=== PATIENT | male | born 1960 | race Caucasian/White ===

== ENCOUNTER 2021-10-11 20:06 | Inpatient (IN) ==
[2021-10-11] MEDS ORDERED: Ipratropium/Albuterol Neb 3 ML IH ONE (20:38)
[2021-10-11] MEDS ORDERED: methylPREDNISolone 125 MG/2 ML VIAL IVP ONE (20:38)
[2021-10-11] MEDS ORDERED: Isovue-370 500 ML BOTTLE IVP ONE (20:38)
[2021-10-11 21:02] LABS: Basophils # 0.1 K/mcL (0.0-0.2); Basophils % 0.4 %; Eosinophils # 0.4 K/mcL (0.0-0.6); Eosinophils % 2.4 %; Hemoglobin 15.8 g/dL (12.9-16.9); Immature Granulocytes % 0.4 % (0-4); Lymphocytes # 1.5 K/mcL (0.6-4.6); Lymphocytes % 9.6 %; Mean Corpuscular HGB Conc 32.2 g/dL (31.6-35.5); Mean Corpuscular Hemoglobin 29.8 pg (28.0-33.3); Mean Corpuscular Volume 92.3 fL (83.0-100.0); Mean Platelet Volume 10.6 fL (9.4-12.4); Monocytes # 1.2 K/mcL (0.0-1.3); Monocytes % 7.8 %; Neutrophils # 12.5 K/mcL (1.6-8.9); Platelet Count 176 K/mcL (140-400); Red Blood Count 5.31 M/mcL (4.19-5.50); Red Cell Distribution Width 13.1 % (11.5-14.5); Segmented Neutrophils % 79.4 %; White Blood Count 15.7 K/mcL (4.3-11.1)
[2021-10-11 21:09] LABS: INR 1.1; Prothrombin Time 11.8 Seconds (9.4-12.1)
[2021-10-11 21:12] LABS: Activated Partial Thrombo Time 27.5 Seconds (26.0-36.0)
[2021-10-11 21:24] LABS: Alanine Aminotransferase 6 Units/L (7-52); Albumin 4.4 g/dL (3.5-5.7); Albumin/Globulin Ratio 1.6 (1.1-2.2); Alkaline Phosphatase 80 Units/L (34-104); Aspartate Amino Transferase 13 Units/L (13-39); BUN/Creatinine Ratio 14 (6-26); Bilirubin,Direct 0.1 mg/dL (0.0-0.2); Bilirubin,Indirect 0.4 mg/dL (0.0-1.0); Bilirubin,Total 0.5 mg/dL (0.3-1.0); Blood Urea Nitrogen 18 mg/dL (8-23); Calcium 8.7 mg/dL (8.6-10.3); Carbon Dioxide 25 mEq/L (23-29); Chloride 100 mEq/L (98-107); Globulin 2.7 g/dL (2.4-3.5); Glucose 135 mg/dL (70-105); Osmolality,Calculated 288 (280-300); Sodium 137 mEq/L (136-145); Total Protein 7.1 g/dL (6.4-8.9); Troponin I 0.03 ng/mL (< 0.04); eGFR For African Americans > 60 (> 60); eGFR For Non-African Americans 55 (> 60)
[2021-10-11 21:27] LABS: ABG Base Excess 0 mEq/L (-2 to 3); ABG HCO3 26 mEq/L (21-27); ABG Oxygen Saturation 97 % (95-98); ABG PCO2 46 mmHg (35-45); ABG PH 7.36 pH Units (7.32-7.45); ABG PO2 94 mmHg (85-104); ABG TCO2 28 mEq/L (20-26)
[2021-10-11 21:38] LABS: Thyroid Stimulating Hormone 2.056 mcIU/mL (0.340-5.600)
[2021-10-11] MEDS ORDERED: cefTRIAXone 1,000 MG in 0.9 % Sodium Chloride 10 ML IVP ONE (21:48)
[2021-10-11] MEDS ORDERED: Azithromycin 500 MG in 0.9 % Sodium Chloride 250 ML IVPB ONE (21:48)
[2021-10-11] MEDS ORDERED: Lidocaine/EPI 1:100k 1% 20 ML VIAL INFILT ONE (21:48)
[2021-10-11] MEDS ORDERED: *HR* HYDROmorphone (PF) 1 MG/ML SYRINGE IVP ONE (21:48)
[2021-10-12 00:57] LABS: Influenza A PCR Negative (Negative); Influenza B PCR Negative (Negative); Resp. Syncytial Virus PCR Negative (Negative)
[2021-10-12 00:58] LABS: SARS-CoV-2 by PCR (In House) Negative (Negative)
[2021-10-12] MEDS ORDERED: Naloxone 0.4 MG/ML INJ IVP PRN (01:00)
[2021-10-12] MEDS ORDERED: Melatonin 3 MG TABLET PO PRN (01:00)
[2021-10-12] MEDS ORDERED: Ringers Solution, Lactated 1,000 ML IVC SCH (02:15)
[2021-10-12] MEDS: Ipratropium/Albuterol Neb 3 ML IH SCH ×4 (04:12→20:30)
[2021-10-12 08:04] LABS: Basophils % 0.1 %; Eosinophils % 0.1 %; Hemoglobin 14.4 g/dL (12.9-16.9); Immature Granulocytes % 0.5 % (0-4); Lymphocytes # 0.9 K/mcL (0.6-4.6); Lymphocytes % 8.5 %; Mean Corpuscular Hemoglobin 29.7 pg (28.0-33.3); Mean Corpuscular Volume 92.8 fL (83.0-100.0); Mean Platelet Volume 11.1 fL (9.4-12.4); Monocytes # 0.2 K/mcL (0.0-1.3); Neutrophils # 9.3 K/mcL (1.6-8.9); Platelet Count 157 K/mcL (140-400); Red Blood Count 4.85 M/mcL (4.19-5.50); Segmented Neutrophils % 88.8 %; White Blood Count 10.4 K/mcL (4.3-11.1)
[2021-10-12] MEDS ORDERED: cefTRIAXone 1,000 MG in 0.9 % Sodium Chloride Mini Bag 100 ML IVPB SCH (09:00)
[2021-10-12] MEDS: MethylPREDNISolone 40 MG/ML VIAL IVP SCH ×3 (09:04→23:18)
[2021-10-12] MEDS: Acetaminophen 325 MG TABLET PO PRN ×2 (09:45→17:10)
[2021-10-12 10:40] LABS: BUN/Creatinine Ratio 17 (6-26); Blood Urea Nitrogen 24 mg/dL (8-23); Calcium 8.8 mg/dL (8.6-10.3); Carbon Dioxide 29 mEq/L (23-29); Chloride 100 mEq/L (98-107); Glucose 143 mg/dL (70-105); Magnesium 1.9 mg/dL (1.6-2.6); Osmolality,Calculated 293 (280-300); Phosphorous 2.9 mg/dL (2.7-4.5); Potassium 4.4 mEq/L (3.5-5.1); Sodium 138 mEq/L (136-145); Troponin I < 0.03 ng/mL (< 0.04); eGFR For African Americans > 60 (> 60); eGFR For Non-African Americans 52 (> 60)
[2021-10-12] MEDS ORDERED: Azithromycin 500 MG in 0.9 % Sodium Chloride 250 ML IVPB SCH (21:00)
[2021-10-13] MEDS: Ipratropium/Albuterol Neb 3 ML IH SCH ×4 (03:46→20:52)
[2021-10-13 06:08] LABS: Basophils % 0.1 %; Hematocrit 41.2 % (37.5-50.1); Hemoglobin 13.5 g/dL (12.9-16.9); Immature Granulocytes % 0.6 % (0-4); Lymphocytes # 0.9 K/mcL (0.6-4.6); Lymphocytes % 5.9 %; Mean Corpuscular HGB Conc 32.8 g/dL (31.6-35.5); Mean Corpuscular Hemoglobin 30.3 pg (28.0-33.3); Mean Corpuscular Volume 92.4 fL (83.0-100.0); Mean Platelet Volume 11.3 fL (9.4-12.4); Monocytes # 0.6 K/mcL (0.0-1.3); Monocytes % 4.1 %; Neutrophils # 12.9 K/mcL (1.6-8.9); Platelet Count 161 K/mcL (140-400); Red Blood Count 4.46 M/mcL (4.19-5.50); Red Cell Distribution Width 13.2 % (11.5-14.5); Segmented Neutrophils % 89.3 %; White Blood Count 14.4 K/mcL (4.3-11.1)
[2021-10-13 06:27] LABS: BUN/Creatinine Ratio 22 (6-26); Blood Urea Nitrogen 30 mg/dL (8-23); Calcium 8.4 mg/dL (8.6-10.3); Carbon Dioxide 26 mEq/L (23-29); Chloride 103 mEq/L (98-107); Glucose 158 mg/dL (70-105); Magnesium 2.1 mg/dL (1.6-2.6); Osmolality,Calculated 295 (280-300); Potassium 4.4 mEq/L (3.5-5.1); Sodium 138 mEq/L (136-145); eGFR For African Americans > 60 (> 60); eGFR For Non-African Americans 53 (> 60)
[2021-10-13] MEDS: Piperacillin/Tazobactam 3.375 GM in 0.9 % Sodium Chloride Mini Bag 100 ML IVPB SCH ×2 (09:20→16:02)
[2021-10-13] MEDS: MethylPREDNISolone 40 MG/ML VIAL IVP SCH ×2 (09:20→16:01)
[2021-10-14] MEDS: MethylPREDNISolone 40 MG/ML VIAL IVP SCH ×4 (00:16→23:59)
[2021-10-14] MEDS: Piperacillin/Tazobactam 3.375 GM in 0.9 % Sodium Chloride Mini Bag 100 ML IVPB SCH ×4 (00:17→23:59)
[2021-10-14] MEDS: Ipratropium/Albuterol Neb 3 ML IH SCH ×4 (03:29→20:27)
[2021-10-14 09:19] LABS: Basophils % 0.1 %; Hematocrit 44.3 % (37.5-50.1); Hemoglobin 14.1 g/dL (12.9-16.9); Immature Granulocytes % 1.3 % (0-4); Lymphocytes # 0.9 K/mcL (0.6-4.6); Lymphocytes % 5.5 %; Mean Corpuscular HGB Conc 31.8 g/dL (31.6-35.5); Mean Corpuscular Hemoglobin 29.5 pg (28.0-33.3); Mean Corpuscular Volume 92.7 fL (83.0-100.0); Mean Platelet Volume 10.5 fL (9.4-12.4); Monocytes # 0.9 K/mcL (0.0-1.3); Monocytes % 5.3 %; Neutrophils # 14.6 K/mcL (1.6-8.9); Platelet Count 180 K/mcL (140-400); Red Blood Count 4.78 M/mcL (4.19-5.50); Red Cell Distribution Width 13.4 % (11.5-14.5); Segmented Neutrophils % 87.8 %; White Blood Count 16.6 K/mcL (4.3-11.1)
[2021-10-14 09:40] LABS: Calcium 8.7 mg/dL (8.6-10.3); Potassium 4.3 mEq/L (3.5-5.1)
[2021-10-14] MEDS ORDERED: *HR* Heparin 5,000 UNIT/ML VIAL IVP ONE (10:40)
[2021-10-14] MEDS ORDERED: *HR* Heparin 5,000 UNIT/ML VIAL IVP PRN ×2 (10:40)
[2021-10-14] MEDS: Heparin 25,000UNIT/250ML 1/2NS 25,000 UNIT/250 ML IV.SOLN IVC SCH (12:03)
[2021-10-14 12:59] LABS: Heparin anti-factor XA UFH < 0.04 IU/mL (0.30-0.70)
[2021-10-14 13:00] LABS: Prothrombin Time 11.5 Seconds (9.4-12.1)
[2021-10-14] MEDS: Acetaminophen 325 MG TABLET PO PRN (16:10)
[2021-10-15 02:58] LABS: Basophils % 0.1 %; Hematocrit 42.3 % (37.5-50.1); Immature Granulocytes % 1.3 % (0-4); Lymphocytes % 6.8 %; Mean Corpuscular HGB Conc 33.1 g/dL (31.6-35.5); Mean Corpuscular Hemoglobin 30.5 pg (28.0-33.3); Mean Corpuscular Volume 92.2 fL (83.0-100.0); Mean Platelet Volume 10.7 fL (9.4-12.4); Monocytes # 0.7 K/mcL (0.0-1.3); Monocytes % 4.8 %; Platelet Count 189 K/mcL (140-400); Red Blood Count 4.59 M/mcL (4.19-5.50); Red Cell Distribution Width 13.4 % (11.5-14.5)
[2021-10-15 03:16] LABS: BUN/Creatinine Ratio 26 (6-26); Blood Urea Nitrogen 35 mg/dL (8-23); Calcium 8.8 mg/dL (8.6-10.3); Carbon Dioxide 28 mEq/L (23-29); Chloride 103 mEq/L (98-107); Glucose 145 mg/dL (70-105); Magnesium 2.1 mg/dL (1.6-2.6); Osmolality,Calculated 299 (280-300); Phosphorous 3.6 mg/dL (2.7-4.5); Potassium 4.6 mEq/L (3.5-5.1); Sodium 139 mEq/L (136-145); eGFR For African Americans > 60 (> 60); eGFR For Non-African Americans 53 (> 60)
[2021-10-15] MEDS: Ipratropium/Albuterol Neb 3 ML IH SCH ×4 (03:52→19:51)
[2021-10-15] MEDS: Heparin 25,000UNIT/250ML 1/2NS 25,000 UNIT/250 ML IV.SOLN IVC SCH ×2 (10:06→15:10)
[2021-10-15] MEDS: MethylPREDNISolone 40 MG/ML VIAL IVP SCH ×2 (10:07→18:05)
[2021-10-15] MEDS: Piperacillin/Tazobactam 3.375 GM in 0.9 % Sodium Chloride Mini Bag 100 ML IVPB SCH ×2 (10:07→18:06)
[2021-10-15] MEDS: Azithromycin 500 MG in 0.9 % Sodium Chloride 250 ML IVPB SCH (14:16)
[2021-10-15] MEDS ORDERED: *HR* Heparin 5,000 UNIT/ML VIAL IVP PRN ×2 (14:32)
[2021-10-15] MEDS: Acetaminophen 325 MG TABLET PO PRN (18:11)
[2021-10-16] MEDS: Piperacillin/Tazobactam 3.375 GM in 0.9 % Sodium Chloride Mini Bag 100 ML IVPB SCH ×3 (00:30→23:51)
[2021-10-16] MEDS: MethylPREDNISolone 40 MG/ML VIAL IVP SCH ×3 (00:31→23:52)
[2021-10-16] MEDS: Ipratropium/Albuterol Neb 3 ML IH SCH ×4 (04:26→20:38)
[2021-10-16 09:17] LABS: Basophils % 0.2 %; Hematocrit 43.8 % (37.5-50.1); Hemoglobin 13.8 g/dL (12.9-16.9); Immature Granulocytes % 1.8 % (0-4); Lymphocytes # 1.2 K/mcL (0.6-4.6); Lymphocytes % 8.9 %; Mean Corpuscular HGB Conc 31.5 g/dL (31.6-35.5); Mean Corpuscular Hemoglobin 29.3 pg (28.0-33.3); Mean Platelet Volume 10.5 fL (9.4-12.4); Monocytes # 0.9 K/mcL (0.0-1.3); Monocytes % 6.5 %; Platelet Count 187 K/mcL (140-400); Red Blood Count 4.71 M/mcL (4.19-5.50); Red Cell Distribution Width 13.4 % (11.5-14.5); Segmented Neutrophils % 82.6 %; White Blood Count 13.3 K/mcL (4.3-11.1)
[2021-10-16 09:31] LABS: BUN/Creatinine Ratio 28 (6-26); Blood Urea Nitrogen 40 mg/dL (8-23); Calcium 8.5 mg/dL (8.6-10.3); Carbon Dioxide 29 mEq/L (23-29); Chloride 103 mEq/L (98-107); Potassium 4.9 mEq/L (3.5-5.1); Sodium 139 mEq/L (136-145); eGFR For African Americans > 60 (> 60); eGFR For Non-African Americans 50 (> 60)
[2021-10-16 09:51] LABS: Glucose 107 mg/dL (70-105); Osmolality,Calculated 298 (280-300)
[2021-10-16] MEDS: Heparin 25,000UNIT/250ML 1/2NS 25,000 UNIT/250 ML IV.SOLN IVC SCH (10:02)
[2021-10-16] MEDS ORDERED: 0.9 % Sodium Chloride 1,000 ML IVC SCH ×2 (11:00→19:58)
[2021-10-16] MEDS: Azithromycin 500 MG in 0.9 % Sodium Chloride 250 ML IVPB SCH (12:32)
[2021-10-16] MEDS ORDERED: Doxycycline 800 MG, Syringe LUER-LOK 1 EACH in 0.9 % Sodium Chloride 50 ML IX ONE (14:36)
[2021-10-16] MEDS ORDERED: *HR* FentaNYL (PF) 100 MCG/2 ML VIAL ONE ×2 (15:04→16:00)
[2021-10-16] MEDS ORDERED: *HR* Propofol 200 MG/20 ML VIAL IVP ONE (15:04)
[2021-10-16] MEDS ORDERED: *HR* Rocuronium Bromide 50 MG/5 ML VIAL ONE ×2 (15:07→15:58)
[2021-10-16] MEDS ORDERED: Lidocaine -MPF 2% 2 ML VIAL ONE (15:07)
[2021-10-16] MEDS ORDERED: Lidocaine HCL 4 ML Topical Solution (Laryng-O-Jet Kit Sterile Pak) TP ONE (15:07)
[2021-10-16] MEDS ORDERED: Ondansetron 4 MG/2 ML VIAL ONE (16:03)
[2021-10-16] MEDS ORDERED: *HR* Labetalol 20 MG/4 ML SYRINGE IVP ONE ×3 (16:17→18:33)
[2021-10-16] MEDS ORDERED: Promethazine 6.25 MG in Water for inj. (sterile) 20 ML IVPB PRN (17:56)
[2021-10-16] MEDS ORDERED: Ondansetron 4 MG/2 ML VIAL IVP PRN ×2 (17:56→19:58)
[2021-10-16] MEDS: *HR* HYDROmorphone (PF) 1 MG/ML SYRINGE IVP PRN ×3 (17:58→18:20)
[2021-10-16] MEDS ORDERED: Naloxone 0.4 MG/ML INJ IVP PRN (19:58)
[2021-10-16] MEDS: Famotidine 20 MG TABLET PO SCH (20:25)
[2021-10-16] MEDS: Gabapentin 300 MG CAPSULE PO SCH (20:25)
[2021-10-16] MEDS: *HR* HYDROcodone/Acet 5/325 mg TABLET PO PRN (21:56)
[2021-10-17] MEDS: *HR* HYDROcodone/Acet 5/325 mg TABLET PO PRN ×2 (04:13→10:24)
[2021-10-17 05:34] LABS: Basophils % 0.2 %; Eosinophils % 0.1 %; Hemoglobin 14.1 g/dL (12.9-16.9); Immature Granulocytes % 1.1 % (0-4); Lymphocytes # 0.8 K/mcL (0.6-4.6); Lymphocytes % 4.6 %; Mean Corpuscular HGB Conc 30.7 g/dL (31.6-35.5); Mean Corpuscular Hemoglobin 29.3 pg (28.0-33.3); Mean Corpuscular Volume 95.4 fL (83.0-100.0); Mean Platelet Volume 10.8 fL (9.4-12.4); Monocytes # 1.3 K/mcL (0.0-1.3); Monocytes % 7.2 %; Neutrophils # 15.2 K/mcL (1.6-8.9); Platelet Count 142 K/mcL (140-400); Red Blood Count 4.82 M/mcL (4.19-5.50); Red Cell Distribution Width 13.4 % (11.5-14.5); Segmented Neutrophils % 86.8 %; White Blood Count 17.5 K/mcL (4.3-11.1)
[2021-10-17] MEDS: Ipratropium/Albuterol Neb 3 ML IH SCH ×4 (05:57→19:32)
[2021-10-17 06:03] LABS: Potassium 4.9 mEq/L (3.5-5.1)
[2021-10-17] MEDS ORDERED: 0.9 % Sodium Chloride 1,000 ML IVC SCH (07:45)
[2021-10-17] MEDS: MethylPREDNISolone 40 MG/ML VIAL IVP SCH ×2 (10:24→18:54)
[2021-10-17] MEDS: Famotidine 20 MG TABLET PO SCH ×2 (10:24→20:00)
[2021-10-17] MEDS: Gabapentin 300 MG CAPSULE PO SCH ×3 (10:24→20:00)
[2021-10-17] MEDS: Piperacillin/Tazobactam 3.375 GM in 0.9 % Sodium Chloride Mini Bag 100 ML IVPB SCH ×2 (10:25→18:55)
[2021-10-17] MEDS: Azithromycin 500 MG in 0.9 % Sodium Chloride 250 ML IVPB SCH (15:24)
[2021-10-17] MEDS: *HR* HYDROcodone/Acet 7.5/325 mg TABLET PO PRN ×2 (15:25→20:05)
[2021-10-18] MEDS: MethylPREDNISolone 40 MG/ML VIAL IVP SCH ×3 (00:24→14:23)
[2021-10-18] MEDS: Piperacillin/Tazobactam 3.375 GM in 0.9 % Sodium Chloride Mini Bag 100 ML IVPB SCH ×3 (00:25→15:51)
[2021-10-18 01:12] LABS: Basophils # 0.1 K/mcL (0.0-0.2); Basophils % 0.3 %; Hematocrit 47.6 % (37.5-50.1); Hemoglobin 15.2 g/dL (12.9-16.9); Immature Granulocytes % 1.6 % (0-4); Lymphocytes # 0.9 K/mcL (0.6-4.6); Lymphocytes % 4.1 %; Mean Corpuscular HGB Conc 31.9 g/dL (31.6-35.5); Mean Corpuscular Hemoglobin 29.6 pg (28.0-33.3); Mean Corpuscular Volume 92.6 fL (83.0-100.0); Mean Platelet Volume 10.4 fL (9.4-12.4); Monocytes # 1.4 K/mcL (0.0-1.3); Monocytes % 6.5 %; Neutrophils # 18.9 K/mcL (1.6-8.9); Platelet Count 138 K/mcL (140-400); Red Blood Count 5.14 M/mcL (4.19-5.50); Red Cell Distribution Width 13.3 % (11.5-14.5); Segmented Neutrophils % 87.5 %; White Blood Count 21.6 K/mcL (4.3-11.1)
[2021-10-18 01:33] LABS: Calcium 8.5 mg/dL (8.6-10.3); Magnesium 2.1 mg/dL (1.6-2.6); Potassium 4.8 mEq/L (3.5-5.1)
[2021-10-18] MEDS ORDERED: *HR* Metoprolol 5 MG/5 ML VIAL IVP STA (04:54)
[2021-10-18] MEDS ORDERED: *HR* Metoprolol 5 MG/5 ML VIAL IVP ONE ×2 (04:54→04:57)
[2021-10-18] MEDS ORDERED: *HR* Labetalol 20 MG/4 ML SYRINGE IVP ONE (04:59)
[2021-10-18] MEDS: Ipratropium/Albuterol Neb 3 ML IH SCH ×4 (05:05→21:17)
[2021-10-18] MEDS ORDERED: niCARdipine 20 MG/200 ML MLS IVC SCH (05:45)
[2021-10-18] MEDS ORDERED: *HR* LORazepam 2 MG/ML VIAL IVP ONE ×2 (06:40→12:29)
[2021-10-18] MEDS: amLODIPine 5 MG TABLET PO SCH (07:57)
[2021-10-18] MEDS: Famotidine 20 MG TABLET PO SCH ×2 (07:57→20:09)
[2021-10-18] MEDS: Gabapentin 300 MG CAPSULE PO SCH ×3 (07:57→20:09)
[2021-10-18] MEDS ORDERED: *HR* Labetalol 20 MG/4 ML SYRINGE IVP PRN (09:19)
[2021-10-18] MEDS ORDERED: carvediloL 6.25 MG TABLET PO SCH (09:22)
[2021-10-18] MEDS: Azithromycin 500 MG in 0.9 % Sodium Chloride 250 ML IVPB SCH (11:55)
[2021-10-18 13:37] LABS: ABG Base Excess 1 mEq/L (-2 to 3); ABG HCO3 29 mEq/L (21-27); ABG Oxygen Saturation 90 % (95-98); ABG PCO2 55 mmHg (35-45); ABG PH 7.33 pH Units (7.32-7.45); ABG PO2 64 mmHg (85-104); ABG TCO2 30 mEq/L (20-26)
[2021-10-18] MEDS ORDERED: Racepinephrine Neb 0.5 ML VIAL IH ONE (14:28)
[2021-10-18] MEDS ORDERED: methylPREDNISolone 125 MG/2 ML VIAL IVP ONE ×2 (14:30→20:23)
[2021-10-18] MEDS: hydrOXYzine pamoate 25 MG CAPSULE PO SCH ×2 (14:46→20:09)
[2021-10-18] MEDS ORDERED: Ipratropium/Albuterol Neb 3 ML ONE (14:49)
[2021-10-18] MEDS: Acetylcysteine 10% 2 ML INHSOL IH SCH ×2 (14:52→21:17)
[2021-10-18] MEDS ORDERED: *HR* Heparin 5,000 UNIT/ML VIAL IVP ONE (14:56)
[2021-10-18] MEDS ORDERED: *HR* Heparin 5,000 UNIT/ML VIAL IVP PRN ×2 (14:56)
[2021-10-18 16:49] LABS: INR 1.1; Prothrombin Time 11.7 Seconds (9.4-12.1)
[2021-10-18 16:52] LABS: Heparin anti-factor XA UFH < 0.04 IU/mL (0.30-0.70)
[2021-10-18] MEDS: carvediloL 25 MG TABLET PO SCH (17:18)
[2021-10-18] MEDS: Heparin 25,000UNIT/250ML 1/2NS 25,000 UNIT/250 ML IV.SOLN IVC SCH (17:58)
[2021-10-18] MEDS: Melatonin 3 MG TABLET PO PRN (20:09)
[2021-10-18] MEDS: *HR* HYDROcodone/Acet 7.5/325 mg TABLET PO PRN (20:10)
[2021-10-18] MEDS ORDERED: Saliva Stimulant 44.3ml BOTTLE PO PRN (20:23)
[2021-10-18] MEDS ORDERED: Apixaban 5 MG TABLET PO SCH (21:00)
[2021-10-18] MEDS: Budesonide/Formoterol 160/4.5 1 PUFF INH IH SCH (21:17)
[2021-10-18] MEDS: Nicotine 21 MG PATCH.TD24 TD SCH (21:48)
[2021-10-18] MEDS: Chlorhexidine Rinse 15 ML MOUTHWASH MM SCH (21:48)
[2021-10-19] MEDS: Ipratropium/Albuterol Neb 3 ML IH SCH ×7 (00:01→23:22)
[2021-10-19 00:52] LABS: Basophils # 0.1 K/mcL (0.0-0.2); Basophils % 0.3 %; Eosinophils % 0.1 %; Hematocrit 42.5 % (37.5-50.1); Immature Granulocytes % 2.3 % (0-4); Lymphocytes % 5.9 %; Mean Corpuscular HGB Conc 31.8 g/dL (31.6-35.5); Mean Corpuscular Hemoglobin 29.1 pg (28.0-33.3); Mean Corpuscular Volume 91.6 fL (83.0-100.0); Mean Platelet Volume 10.2 fL (9.4-12.4); Monocytes # 0.7 K/mcL (0.0-1.3); Neutrophils # 14.9 K/mcL (1.6-8.9); Platelet Count 109 K/mcL (140-400); Red Blood Count 4.64 M/mcL (4.19-5.50); Red Cell Distribution Width 13.3 % (11.5-14.5); Segmented Neutrophils % 87.4 %; White Blood Count 17.1 K/mcL (4.3-11.1)
[2021-10-19 00:53] LABS: Hemoglobin 13.5 g/dL (12.9-16.9)
[2021-10-19] MEDS: Piperacillin/Tazobactam 3.375 GM in 0.9 % Sodium Chloride Mini Bag 100 ML IVPB SCH ×3 (01:03→17:37)
[2021-10-19 01:54] LABS: BUN/Creatinine Ratio 39 (6-26); Blood Urea Nitrogen 48 mg/dL (8-23); Calcium 8.2 mg/dL (8.6-10.3); Carbon Dioxide 27 mEq/L (23-29); Chloride 100 mEq/L (98-107); Glucose 131 mg/dL (70-105); Osmolality,Calculated 290 (280-300); Sodium 133 mEq/L (136-145); eGFR For African Americans > 60 (> 60); eGFR For Non-African Americans 60 (> 60)
[2021-10-19] MEDS: Acetylcysteine 10% 2 ML INHSOL IH SCH ×4 (04:26→20:27)
[2021-10-19] MEDS: MethylPREDNISolone 40 MG/ML VIAL IVP SCH ×3 (06:04→21:06)
[2021-10-19] MEDS ORDERED: Calcium Gluconate 1gm/50mL 1 GM/50 ML BAG IVPB STA (06:10)
[2021-10-19] MEDS ORDERED: *HR* Dextrose 50 % in Water (Syg) 50 ML SYRINGE IVP ONE (06:11)
[2021-10-19] MEDS ORDERED: Insulin Human Regular 10 UNIT in 0.9 % Sodium Chloride 10 ML IV ONE (06:30)
[2021-10-19] MEDS: Budesonide/Formoterol 160/4.5 1 PUFF INH IH SCH ×2 (07:58→20:27)
[2021-10-19 08:09] LABS: ABG Base Excess 5 mEq/L (-2 to 3); ABG HCO3 32 mEq/L (21-27); ABG Oxygen Saturation 96 % (95-98); ABG PCO2 54 mmHg (35-45); ABG PH 7.38 pH Units (7.32-7.45); ABG PO2 88 mmHg (85-104); ABG TCO2 34 mEq/L (20-26)
[2021-10-19] MEDS: carvediloL 25 MG TABLET PO SCH ×2 (08:09→17:42)
[2021-10-19] MEDS: Chlorhexidine Rinse 15 ML MOUTHWASH MM SCH ×2 (08:19→21:06)
[2021-10-19] MEDS: Pantoprazole 40 MG VIAL IVP SCH (08:19)
[2021-10-19] MEDS: Gabapentin 300 MG CAPSULE PO SCH ×3 (08:20→21:05)
[2021-10-19] MEDS: Nicotine 21 MG PATCH.TD24 TD SCH (08:21)
[2021-10-19] MEDS: amLODIPine 5 MG TABLET PO SCH (08:21)
[2021-10-19] MEDS: hydrOXYzine pamoate 25 MG CAPSULE PO SCH ×3 (08:22→21:05)
[2021-10-19] MEDS: *HR* HYDROcodone/Acet 7.5/325 mg TABLET PO PRN ×3 (08:22→21:05)
[2021-10-19] MEDS: Famotidine 20 MG TABLET PO SCH ×2 (08:22→21:05)
[2021-10-19] MEDS ORDERED: Nicotine 21 MG PATCH.TD24 TD SCH (09:00)
[2021-10-19] MEDS: Heparin 25,000UNIT/250ML 1/2NS 25,000 UNIT/250 ML IV.SOLN IVC SCH (14:11)
[2021-10-19] MEDS: Acetaminophen 325 MG TABLET PO PRN (17:42)
[2021-10-19] MEDS: Melatonin 3 MG TABLET PO PRN (21:05)
[2021-10-20 00:12] LABS: Basophils # 0.1 K/mcL (0.0-0.2); Basophils % 0.5 %; Eosinophils % 0.1 %; Hematocrit 41.1 % (37.5-50.1); Hemoglobin 13.3 g/dL (12.9-16.9); Immature Granulocytes % 4.5 % (0-4); Lymphocytes # 0.8 K/mcL (0.6-4.6); Lymphocytes % 4.7 %; Mean Corpuscular HGB Conc 32.4 g/dL (31.6-35.5); Mean Corpuscular Hemoglobin 29.8 pg (28.0-33.3); Mean Corpuscular Volume 92.2 fL (83.0-100.0); Mean Platelet Volume 11.1 fL (9.4-12.4); Monocytes # 1.3 K/mcL (0.0-1.3); Monocytes % 7.2 %; Neutrophils # 14.5 K/mcL (1.6-8.9); Platelet Count 133 K/mcL (140-400); Red Blood Count 4.46 M/mcL (4.19-5.50); Red Cell Distribution Width 13.2 % (11.5-14.5); White Blood Count 17.5 K/mcL (4.3-11.1)
[2021-10-20 00:32] LABS: Potassium 4.5 mEq/L (3.5-5.1)
[2021-10-20] MEDS: Piperacillin/Tazobactam 3.375 GM in 0.9 % Sodium Chloride Mini Bag 100 ML IVPB SCH ×4 (01:10→18:07)
[2021-10-20] MEDS: Acetylcysteine 10% 2 ML INHSOL IH SCH ×4 (03:45→19:54)
[2021-10-20] MEDS: Ipratropium/Albuterol Neb 3 ML IH SCH ×5 (03:46→19:53)
[2021-10-20] MEDS: MethylPREDNISolone 40 MG/ML VIAL IVP SCH ×3 (05:23→21:53)
[2021-10-20] MEDS ORDERED: 0.9 % Sodium Chloride 1,000 ML IVC SCH (07:30)
[2021-10-20] MEDS: Budesonide/Formoterol 160/4.5 1 PUFF INH IH SCH ×2 (07:30→19:54)
[2021-10-20] MEDS: Famotidine 20 MG TABLET PO SCH ×2 (09:26→20:06)
[2021-10-20] MEDS: hydrOXYzine pamoate 25 MG CAPSULE PO SCH ×3 (09:27→20:06)
[2021-10-20] MEDS: amLODIPine 5 MG TABLET PO SCH (09:27)
[2021-10-20] MEDS: Pantoprazole 40 MG VIAL IVP SCH (09:27)
[2021-10-20] MEDS: carvediloL 25 MG TABLET PO SCH ×2 (09:27→18:07)
[2021-10-20] MEDS: Chlorhexidine Rinse 15 ML MOUTHWASH MM SCH ×2 (09:28→20:06)
[2021-10-20] MEDS: Gabapentin 300 MG CAPSULE PO SCH ×3 (09:28→20:06)
[2021-10-20] MEDS: *HR* HYDROcodone/Acet 7.5/325 mg TABLET PO PRN ×3 (09:28→20:07)
[2021-10-20] MEDS: Nicotine 21 MG PATCH.TD24 TD SCH (09:28)
[2021-10-20] MEDS: Heparin 25,000UNIT/250ML 1/2NS 25,000 UNIT/250 ML IV.SOLN IVC SCH (13:31)
[2021-10-20] MEDS: Melatonin 3 MG TABLET PO PRN (20:08)
[2021-10-21] MEDS: Ipratropium/Albuterol Neb 3 ML IH SCH ×7 (00:03→23:47)
[2021-10-21] MEDS: Piperacillin/Tazobactam 3.375 GM in 0.9 % Sodium Chloride Mini Bag 100 ML IVPB SCH ×3 (01:15→17:55)
[2021-10-21] MEDS: *HR* HYDROcodone/Acet 7.5/325 mg TABLET PO PRN ×2 (01:16→21:28)
[2021-10-21 04:04] LABS: Basophils # 0.1 K/mcL (0.0-0.2); Basophils % 0.6 %; Eosinophils % 0.1 %; Hematocrit 39.9 % (37.5-50.1); Hemoglobin 12.7 g/dL (12.9-16.9); Immature Granulocytes % 7.9 % (0-4); Lymphocytes # 0.9 K/mcL (0.6-4.6); Lymphocytes % 5.3 %; Mean Corpuscular HGB Conc 31.8 g/dL (31.6-35.5); Mean Corpuscular Hemoglobin 29.4 pg (28.0-33.3); Mean Corpuscular Volume 92.4 fL (83.0-100.0); Monocytes % 5.9 %; Neutrophils # 12.9 K/mcL (1.6-8.9); Nucleated Red Blood Cells 0.1 /100 WBC (0); Platelet Count 151 K/mcL (140-400); Red Blood Count 4.32 M/mcL (4.19-5.50); Red Cell Distribution Width 13.4 % (11.5-14.5); Segmented Neutrophils % 80.2 %; White Blood Count 16.1 K/mcL (4.3-11.1)
[2021-10-21 04:26] LABS: BUN/Creatinine Ratio 38 (6-26); Blood Urea Nitrogen 53 mg/dL (8-23); Calcium 7.8 mg/dL (8.6-10.3); Carbon Dioxide 28 mEq/L (23-29); Chloride 105 mEq/L (98-107); Glucose 281 mg/dL (70-105); Osmolality,Calculated 317 (280-300); Potassium 4.6 mEq/L (3.5-5.1); Sodium 141 mEq/L (136-145); eGFR For African Americans > 60 (> 60); eGFR For Non-African Americans 51 (> 60)
[2021-10-21] MEDS: Acetylcysteine 10% 2 ML INHSOL IH SCH ×4 (04:28→20:47)
[2021-10-21] MEDS: Budesonide/Formoterol 160/4.5 1 PUFF INH IH SCH ×2 (07:54→20:48)
[2021-10-21] MEDS: hydrOXYzine pamoate 25 MG CAPSULE PO SCH ×3 (08:33→21:28)
[2021-10-21] MEDS: Chlorhexidine Rinse 15 ML MOUTHWASH MM SCH ×2 (08:33→21:28)
[2021-10-21] MEDS: amLODIPine 5 MG TABLET PO SCH (08:33)
[2021-10-21] MEDS: Gabapentin 300 MG CAPSULE PO SCH ×3 (08:33→21:28)
[2021-10-21] MEDS: Famotidine 20 MG TABLET PO SCH ×2 (08:33→21:27)
[2021-10-21] MEDS: carvediloL 25 MG TABLET PO SCH ×2 (08:34→15:53)
[2021-10-21] MEDS: Pantoprazole 40 MG VIAL IVP SCH (08:34)
[2021-10-21] MEDS: Nicotine 21 MG PATCH.TD24 TD SCH (08:35)
[2021-10-21] MEDS: MethylPREDNISolone 40 MG/ML VIAL IVP SCH ×2 (08:46→17:55)
[2021-10-21] MEDS: Heparin 25,000UNIT/250ML 1/2NS 25,000 UNIT/250 ML IV.SOLN IVC SCH (18:52)
[2021-10-21] MEDS: Melatonin 3 MG TABLET PO PRN (21:27)
[2021-10-22] MEDS: *HR* HYDROcodone/Acet 7.5/325 mg TABLET PO PRN ×4 (02:42→22:33)
[2021-10-22] MEDS: Piperacillin/Tazobactam 3.375 GM in 0.9 % Sodium Chloride Mini Bag 100 ML IVPB SCH ×3 (02:43→17:58)
[2021-10-22] MEDS: Acetylcysteine 10% 2 ML INHSOL IH SCH ×4 (04:28→20:03)
[2021-10-22] MEDS: Ipratropium/Albuterol Neb 3 ML IH SCH ×6 (04:28→23:48)
[2021-10-22] MEDS: Acetaminophen 325 MG TABLET PO PRN (05:57)
[2021-10-22 06:27] LABS: Hematocrit 41.2 % (37.5-50.1); Hemoglobin 13.3 g/dL (12.9-16.9); Mean Corpuscular HGB Conc 32.3 g/dL (31.6-35.5); Mean Corpuscular Volume 92.8 fL (83.0-100.0); Mean Platelet Volume 10.8 fL (9.4-12.4); Nucleated Red Blood Cells 0.2 /100 WBC (0); Platelet Count 176 K/mcL (140-400); Red Blood Count 4.44 M/mcL (4.19-5.50); Red Cell Distribution Width 13.8 % (11.5-14.5); White Blood Count 21.2 K/mcL (4.3-11.1)
[2021-10-22] MEDS: MethylPREDNISolone 40 MG/ML VIAL IVP SCH ×2 (06:33→17:57)
[2021-10-22 06:45] LABS: Lymphocytes # 2.5 K/mcL (0.6-4.6); Monocytes # 1.3 K/mcL (0.0-1.3); Neutrophils # 16.5 K/mcL (1.6-8.9); Platelet Estimate Normal (Normal)
[2021-10-22 06:46] LABS: Potassium 4.5 mEq/L (3.5-5.1)
[2021-10-22] MEDS: Budesonide/Formoterol 160/4.5 1 PUFF INH IH SCH ×2 (08:06→20:03)
[2021-10-22] MEDS: hydrOXYzine pamoate 25 MG CAPSULE PO SCH ×3 (08:40→20:57)
[2021-10-22] MEDS: Pantoprazole 40 MG VIAL IVP SCH (08:40)
[2021-10-22] MEDS: Famotidine 20 MG TABLET PO SCH ×2 (08:40→20:57)
[2021-10-22] MEDS: Gabapentin 300 MG CAPSULE PO SCH ×3 (08:40→20:57)
[2021-10-22] MEDS: amLODIPine 5 MG TABLET PO SCH (08:40)
[2021-10-22] MEDS: carvediloL 25 MG TABLET PO SCH ×2 (08:40→16:03)
[2021-10-22] MEDS: Chlorhexidine Rinse 15 ML MOUTHWASH MM SCH ×2 (08:42→20:59)
[2021-10-22] MEDS: Heparin 25,000UNIT/250ML 1/2NS 25,000 UNIT/250 ML IV.SOLN IVC SCH ×2 (09:30→22:28)
[2021-10-22] MEDS: Nicotine 21 MG PATCH.TD24 TD SCH (09:55)
[2021-10-23] MEDS: Piperacillin/Tazobactam 3.375 GM in 0.9 % Sodium Chloride Mini Bag 100 ML IVPB SCH ×2 (02:00→09:32)
[2021-10-23] MEDS: Ipratropium/Albuterol Neb 3 ML IH SCH ×6 (03:41→23:12)
[2021-10-23] MEDS: Acetylcysteine 10% 2 ML INHSOL IH SCH ×4 (03:41→20:37)
[2021-10-23] MEDS: MethylPREDNISolone 40 MG/ML VIAL IVP SCH ×2 (05:09→16:42)
[2021-10-23] MEDS: *HR* HYDROcodone/Acet 7.5/325 mg TABLET PO PRN ×3 (05:10→14:08)
[2021-10-23 05:23] LABS: Basophils % 0.1 %; Immature Granulocytes % 11.7 % (0-4); Segmented Neutrophils % 75.9 %
[2021-10-23 05:24] LABS: Eosinophils # 0.1 K/mcL (0.0-0.6); Eosinophils % 0.4 %; Hematocrit 39.1 % (37.5-50.1); Hemoglobin 12.6 g/dL (12.9-16.9); Lymphocytes # 1.7 K/mcL (0.6-4.6); Lymphocytes % 6.5 %; Mean Corpuscular HGB Conc 32.2 g/dL (31.6-35.5); Mean Corpuscular Hemoglobin 29.2 pg (28.0-33.3); Mean Corpuscular Volume 90.5 fL (83.0-100.0); Mean Platelet Volume 11.2 fL (9.4-12.4); Monocytes # 1.4 K/mcL (0.0-1.3); Monocytes % 5.4 %; Neutrophils # 19.4 K/mcL (1.6-8.9); Nucleated Red Blood Cells 0.2 /100 WBC (0); Platelet Count 193 K/mcL (140-400); Red Blood Count 4.32 M/mcL (4.19-5.50); Red Cell Distribution Width 14.1 % (11.5-14.5); White Blood Count 25.6 K/mcL (4.3-11.1)
[2021-10-23 05:54] LABS: Platelet Estimate Normal (Normal)
[2021-10-23] MEDS: Budesonide/Formoterol 160/4.5 1 PUFF INH IH SCH ×2 (07:55→20:36)
[2021-10-23 08:22] LABS: Calcium 8.2 mg/dL (8.6-10.3); Magnesium 1.9 mg/dL (1.6-2.6); Potassium 4.6 mEq/L (3.5-5.1)
[2021-10-23] MEDS: hydrOXYzine pamoate 25 MG CAPSULE PO SCH ×3 (09:00→19:56)
[2021-10-23] MEDS: carvediloL 25 MG TABLET PO SCH ×2 (09:11→16:41)
[2021-10-23] MEDS: amLODIPine 5 MG TABLET PO SCH (09:11)
[2021-10-23] MEDS: Chlorhexidine Rinse 15 ML MOUTHWASH MM SCH ×2 (09:13→19:25)
[2021-10-23] MEDS: Gabapentin 300 MG CAPSULE PO SCH ×3 (09:13→19:56)
[2021-10-23] MEDS: Nicotine 21 MG PATCH.TD24 TD SCH (09:33)
[2021-10-23] MEDS: Famotidine 20 MG TABLET PO SCH ×2 (09:34→19:56)
[2021-10-23] MEDS: Pantoprazole 40 MG VIAL IVP SCH (09:34)
[2021-10-23] MEDS ORDERED: levoFLOXacin 750 MG/150 ML 750 MG/150 ML BAG IVPB SCH (12:15)
[2021-10-23] MEDS: Ertapenem 1,000 MG in 0.9 % Sodium Chloride Mini Bag 100 ML IVPB SCH (17:11)
[2021-10-24] MEDS: Ipratropium/Albuterol Neb 3 ML IH SCH ×5 (03:53→20:20)
[2021-10-24] MEDS: Acetylcysteine 10% 2 ML INHSOL IH SCH ×4 (03:53→20:20)
[2021-10-24] MEDS: Heparin 25,000UNIT/250ML 1/2NS 25,000 UNIT/250 ML IV.SOLN IVC SCH ×2 (05:56→07:19)
[2021-10-24] MEDS: MethylPREDNISolone 40 MG/ML VIAL IVP SCH ×2 (05:56→17:19)
[2021-10-24] MEDS: Budesonide/Formoterol 160/4.5 1 PUFF INH IH SCH ×2 (07:49→20:20)
[2021-10-24 08:36] LABS: Mean Platelet Volume 10.8 fL (9.4-12.4); Red Cell Distribution Width 14.1 % (11.5-14.5)
[2021-10-24 08:38] LABS: Hematocrit 41.4 % (37.5-50.1); Hemoglobin 13.8 g/dL (12.9-16.9); Mean Corpuscular HGB Conc 33.3 g/dL (31.6-35.5); Mean Corpuscular Hemoglobin 30.7 pg (28.0-33.3); Platelet Count 227 K/mcL (140-400)
[2021-10-24 08:40] LABS: White Blood Count 35.6 K/mcL (4.3-11.1)
[2021-10-24] MEDS: *HR* HYDROcodone/Acet 7.5/325 mg TABLET PO PRN (08:41)
[2021-10-24] MEDS: amLODIPine 5 MG TABLET PO SCH (08:42)
[2021-10-24] MEDS: Famotidine 20 MG TABLET PO SCH ×2 (08:42→21:34)
[2021-10-24] MEDS: Gabapentin 300 MG CAPSULE PO SCH ×4 (08:42→21:34)
[2021-10-24] MEDS: carvediloL 25 MG TABLET PO SCH ×2 (08:42→17:19)
[2021-10-24] MEDS: Ertapenem 1,000 MG in 0.9 % Sodium Chloride Mini Bag 100 ML IVPB SCH (08:49)
[2021-10-24] MEDS: Chlorhexidine Rinse 15 ML MOUTHWASH MM SCH ×2 (08:53→21:33)
[2021-10-24 08:55] LABS: BUN/Creatinine Ratio 35 (6-26); Blood Urea Nitrogen 50 mg/dL (8-23); Calcium 8.8 mg/dL (8.6-10.3); Carbon Dioxide 33 mEq/L (23-29); Chloride 98 mEq/L (98-107); Glucose 150 mg/dL (70-105); Osmolality,Calculated 302 (280-300); Potassium 4.8 mEq/L (3.5-5.1); Sodium 138 mEq/L (136-145); eGFR For African Americans > 60 (> 60); eGFR For Non-African Americans 50 (> 60)
[2021-10-24] MEDS: hydrOXYzine pamoate 25 MG CAPSULE PO SCH ×4 (10:07→21:34)
[2021-10-24] MEDS: Nystatin SUSP 5 ML UD.LIQ PO SCH ×4 (10:07→21:34)
[2021-10-24] MEDS: Pantoprazole 40 MG VIAL IVP SCH (10:07)
[2021-10-24] MEDS: Nicotine 21 MG PATCH.TD24 TD SCH (10:10)
[2021-10-24] MEDS: Apixaban 5 MG TABLET PO SCH ×2 (10:16→21:33)
[2021-10-24] MEDS: Acetaminophen 325 MG TABLET PO PRN (10:18)
[2021-10-25] MEDS: Ipratropium/Albuterol Neb 3 ML IH SCH ×6 (00:32→20:39)
[2021-10-25 01:30] LABS: Mean Platelet Volume 11.2 fL (9.4-12.4); Nucleated Red Blood Cells 0.2 /100 WBC (0)
[2021-10-25 01:32] LABS: Hematocrit 39.7 % (37.5-50.1); Mean Corpuscular HGB Conc 32.7 g/dL (31.6-35.5); Mean Corpuscular Hemoglobin 30.1 pg (28.0-33.3); Mean Corpuscular Volume 91.9 fL (83.0-100.0); Platelet Count 201 K/mcL (140-400); Red Blood Count 4.32 M/mcL (4.19-5.50); Red Cell Distribution Width 14.1 % (11.5-14.5)
[2021-10-25 01:47] LABS: White Blood Count 34.1 K/mcL (4.3-11.1)
[2021-10-25 01:51] LABS: Calcium 8.5 mg/dL (8.6-10.3); Potassium 4.7 mEq/L (3.5-5.1)
[2021-10-25 02:11] LABS: Lymphocytes # 6.8 K/mcL (0.6-4.6); Monocytes # 0.7 K/mcL (0.0-1.3); Neutrophils # 25.9 K/mcL (1.6-8.9); Platelet Estimate Normal (Normal)
[2021-10-25] MEDS: Acetylcysteine 10% 2 ML INHSOL IH SCH ×3 (04:46→15:55)
[2021-10-25] MEDS: MethylPREDNISolone 40 MG/ML VIAL IVP SCH (06:26)
[2021-10-25] MEDS: Budesonide/Formoterol 160/4.5 1 PUFF INH IH SCH ×2 (07:26→20:39)
[2021-10-25] MEDS: Apixaban 5 MG TABLET PO SCH ×2 (07:51→21:32)
[2021-10-25] MEDS: amLODIPine 5 MG TABLET PO SCH (07:51)
[2021-10-25] MEDS: hydrOXYzine pamoate 25 MG CAPSULE PO SCH ×3 (07:51→21:33)
[2021-10-25] MEDS: carvediloL 25 MG TABLET PO SCH ×2 (07:52→17:35)
[2021-10-25] MEDS: Famotidine 20 MG TABLET PO SCH ×2 (07:52→21:32)
[2021-10-25] MEDS: Gabapentin 300 MG CAPSULE PO SCH ×3 (07:52→21:32)
[2021-10-25] MEDS: Chlorhexidine Rinse 15 ML MOUTHWASH MM SCH ×2 (07:54→21:31)
[2021-10-25] MEDS: Nystatin SUSP 5 ML UD.LIQ PO SCH ×4 (07:54→21:32)
[2021-10-25] MEDS: Nicotine 21 MG PATCH.TD24 TD SCH (07:55)
[2021-10-25] MEDS: Ertapenem 1,000 MG in 0.9 % Sodium Chloride Mini Bag 100 ML IVPB SCH (07:58)
[2021-10-25] MEDS: Pantoprazole 40 MG VIAL IVP SCH (07:58)
[2021-10-25] MEDS: *HR* HYDROcodone/Acet 7.5/325 mg TABLET PO PRN ×2 (08:10→21:35)
[2021-10-25] MEDS: predniSONE 20 MG TABLET PO SCH (08:10)
[2021-10-25] MEDS: Acetaminophen 325 MG TABLET PO PRN (14:59)
[2021-10-26] MEDS: Ipratropium/Albuterol Neb 3 ML IH SCH ×7 (04:35→23:46)
[2021-10-26 06:09] LABS: Mean Corpuscular HGB Conc 33.3 g/dL (31.6-35.5); Mean Corpuscular Hemoglobin 30.4 pg (28.0-33.3); Mean Corpuscular Volume 91.1 fL (83.0-100.0); Mean Platelet Volume 10.9 fL (9.4-12.4); Nucleated Red Blood Cells 0.2 /100 WBC (0); Platelet Count 187 K/mcL (140-400); Red Blood Count 4.61 M/mcL (4.19-5.50); Red Cell Distribution Width 14.7 % (11.5-14.5)
[2021-10-26 06:27] LABS: BUN/Creatinine Ratio 43 (6-26); Blood Urea Nitrogen 61 mg/dL (8-23); Calcium 8.6 mg/dL (8.6-10.3); Carbon Dioxide 31 mEq/L (23-29); Chloride 97 mEq/L (98-107); Glucose 173 mg/dL (70-105); Osmolality,Calculated 305 (280-300); Potassium 4.9 mEq/L (3.5-5.1); Sodium 137 mEq/L (136-145); eGFR For African Americans > 60 (> 60); eGFR For Non-African Americans 51 (> 60)
[2021-10-26 06:45] LABS: Monocytes # 2.9 K/mcL (0.0-1.3); Neutrophils # 28.1 K/mcL (1.6-8.9); Platelet Estimate Normal (Normal)
[2021-10-26] MEDS: Budesonide/Formoterol 160/4.5 1 PUFF INH IH SCH ×2 (07:39→20:35)
[2021-10-26] MEDS: hydrOXYzine pamoate 25 MG CAPSULE PO SCH ×3 (08:35→20:44)
[2021-10-26] MEDS: Nicotine 21 MG PATCH.TD24 TD SCH (08:35)
[2021-10-26] MEDS: Nystatin SUSP 5 ML UD.LIQ PO SCH ×4 (08:35→20:44)
[2021-10-26] MEDS: Chlorhexidine Rinse 15 ML MOUTHWASH MM SCH ×2 (08:35→20:44)
[2021-10-26] MEDS: Apixaban 5 MG TABLET PO SCH ×2 (08:36→20:44)
[2021-10-26] MEDS: Famotidine 20 MG TABLET PO SCH ×2 (08:36→20:44)
[2021-10-26] MEDS: amLODIPine 5 MG TABLET PO SCH (08:36)
[2021-10-26] MEDS: carvediloL 25 MG TABLET PO SCH ×2 (08:36→18:48)
[2021-10-26] MEDS: predniSONE 20 MG TABLET PO SCH (08:37)
[2021-10-26] MEDS: Gabapentin 300 MG CAPSULE PO SCH ×3 (08:37→20:44)
[2021-10-26] MEDS: Ertapenem 1,000 MG in 0.9 % Sodium Chloride Mini Bag 100 ML IVPB SCH (08:41)
[2021-10-26] MEDS: *HR* HYDROcodone/Acet 7.5/325 mg TABLET PO PRN (20:48)
[2021-10-27 03:10] LABS: Basophils % 0.5 %; Monocytes % 6.3 %; Red Cell Distribution Width 14.9 % (11.5-14.5)
[2021-10-27 03:11] LABS: Basophils # 0.2 K/mcL (0.0-0.2); Eosinophils # 0.2 K/mcL (0.0-0.6); Eosinophils % 0.5 %; Hematocrit 38.3 % (37.5-50.1); Hemoglobin 12.8 g/dL (12.9-16.9); Immature Granulocytes % 9.5 % (0-4); Lymphocytes % 5.8 %; Mean Corpuscular HGB Conc 33.4 g/dL (31.6-35.5); Mean Corpuscular Volume 89.9 fL (83.0-100.0); Mean Platelet Volume 10.7 fL (9.4-12.4); Monocytes # 1.9 K/mcL (0.0-1.3); Neutrophils # 23.3 K/mcL (1.6-8.9); Nucleated Red Blood Cells 0.2 /100 WBC (0); Platelet Count 156 K/mcL (140-400); Red Blood Count 4.26 M/mcL (4.19-5.50); Segmented Neutrophils % 77.4 %
[2021-10-27 03:17] LABS: Lymphocytes # 1.8 K/mcL (0.6-4.6)
[2021-10-27 03:18] LABS: White Blood Count 30.1 K/mcL (4.3-11.1)
[2021-10-27 03:25] LABS: BUN/Creatinine Ratio 44 (6-26); Blood Urea Nitrogen 62 mg/dL (8-23); Calcium 8.1 mg/dL (8.6-10.3); Carbon Dioxide 29 mEq/L (23-29); Chloride 98 mEq/L (98-107); Glucose 128 mg/dL (70-105); Osmolality,Calculated 301 (280-300); Potassium 4.7 mEq/L (3.5-5.1); Sodium 136 mEq/L (136-145); eGFR For African Americans > 60 (> 60); eGFR For Non-African Americans 51 (> 60)
[2021-10-27 03:43] LABS: Platelet Estimate Normal (Normal); Reactive Lymphocytes Present (Not Present)
[2021-10-27] MEDS: Ipratropium/Albuterol Neb 3 ML IH SCH ×6 (04:15→23:36)
[2021-10-27] MEDS: Budesonide/Formoterol 160/4.5 1 PUFF INH IH SCH ×2 (07:29→19:56)
[2021-10-27] MEDS: Apixaban 5 MG TABLET PO SCH ×2 (08:14→20:51)
[2021-10-27] MEDS: carvediloL 25 MG TABLET PO SCH ×2 (08:14→17:15)
[2021-10-27] MEDS: Famotidine 20 MG TABLET PO SCH ×2 (08:14→20:50)
[2021-10-27] MEDS: Ertapenem 1,000 MG in 0.9 % Sodium Chloride Mini Bag 100 ML IVPB SCH (08:15)
[2021-10-27] MEDS: Chlorhexidine Rinse 15 ML MOUTHWASH MM SCH ×2 (08:15→20:51)
[2021-10-27] MEDS: hydrOXYzine pamoate 25 MG CAPSULE PO SCH ×3 (08:15→20:50)
[2021-10-27] MEDS: Nicotine 21 MG PATCH.TD24 TD SCH (08:15)
[2021-10-27] MEDS: Gabapentin 300 MG CAPSULE PO SCH ×3 (08:15→20:51)
[2021-10-27] MEDS: Nystatin SUSP 5 ML UD.LIQ PO SCH ×4 (08:15→20:51)
[2021-10-27] MEDS: predniSONE 10 MG TABLET PO SCH (08:16)
[2021-10-27] MEDS: amLODIPine 5 MG TABLET PO SCH (08:16)
[2021-10-27] MEDS: *HR* HYDROcodone/Acet 7.5/325 mg TABLET PO PRN (20:50)
[2021-10-27] MEDS: Melatonin 3 MG TABLET PO PRN (20:51)
[2021-10-28] MEDS: Ipratropium/Albuterol Neb 3 ML IH SCH ×6 (03:58→23:16)
[2021-10-28 06:07] LABS: Basophils # 0.1 K/mcL (0.0-0.2); Basophils % 0.5 %; Eosinophils # 0.3 K/mcL (0.0-0.6); Eosinophils % 1.1 %; Hematocrit 39.7 % (37.5-50.1); Hemoglobin 12.9 g/dL (12.9-16.9); Immature Granulocytes % 7.4 % (0-4); Lymphocytes # 1.6 K/mcL (0.6-4.6); Lymphocytes % 6.8 %; Mean Corpuscular HGB Conc 32.5 g/dL (31.6-35.5); Mean Corpuscular Hemoglobin 29.9 pg (28.0-33.3); Mean Corpuscular Volume 92.1 fL (83.0-100.0); Mean Platelet Volume 11.4 fL (9.4-12.4); Monocytes # 1.7 K/mcL (0.0-1.3); Monocytes % 7.1 %; Neutrophils # 18.2 K/mcL (1.6-8.9); Nucleated Red Blood Cells 0.2 /100 WBC (0); Platelet Count 114 K/mcL (140-400); Red Blood Count 4.31 M/mcL (4.19-5.50); Segmented Neutrophils % 77.1 %; White Blood Count 23.6 K/mcL (4.3-11.1)
[2021-10-28 06:25] LABS: Calcium 8.1 mg/dL (8.6-10.3); Potassium 4.2 mEq/L (3.5-5.1)
[2021-10-28] MEDS: Budesonide/Formoterol 160/4.5 1 PUFF INH IH SCH ×2 (07:41→20:24)
[2021-10-28] MEDS: hydrOXYzine pamoate 25 MG CAPSULE PO SCH ×3 (09:22→20:09)
[2021-10-28] MEDS: Nystatin SUSP 5 ML UD.LIQ PO SCH ×4 (09:22→20:09)
[2021-10-28] MEDS: Apixaban 5 MG TABLET PO SCH ×2 (09:22→20:09)
[2021-10-28] MEDS: Chlorhexidine Rinse 15 ML MOUTHWASH MM SCH ×2 (09:22→20:09)
[2021-10-28] MEDS: Gabapentin 300 MG CAPSULE PO SCH ×3 (09:22→20:09)
[2021-10-28] MEDS: carvediloL 25 MG TABLET PO SCH ×2 (09:23→17:09)
[2021-10-28] MEDS: amLODIPine 5 MG TABLET PO SCH (09:23)
[2021-10-28] MEDS: predniSONE 10 MG TABLET PO SCH (09:23)
[2021-10-28] MEDS: Famotidine 20 MG TABLET PO SCH ×2 (09:23→20:09)
[2021-10-28] MEDS: Nicotine 21 MG PATCH.TD24 TD SCH (09:23)
[2021-10-28] MEDS: Ertapenem 1,000 MG in 0.9 % Sodium Chloride Mini Bag 100 ML IVPB SCH (09:23)
[2021-10-28] MEDS: *HR* HYDROcodone/Acet 7.5/325 mg TABLET PO PRN ×2 (12:18→20:09)
[2021-10-29] MEDS: Ipratropium/Albuterol Neb 3 ML IH SCH ×6 (03:50→23:14)
[2021-10-29 04:23] LABS: Basophils % 0.3 %; Hemoglobin 11.9 g/dL (12.9-16.9); Nucleated Red Blood Cells 0.1 /100 WBC (0)
[2021-10-29 04:24] LABS: Basophils # 0.1 K/mcL (0.0-0.2); Eosinophils # 0.3 K/mcL (0.0-0.6); Eosinophils % 1.3 %; Immature Granulocytes % 5.5 % (0-4); Immature Platelets 7.5 % (1.1-6.1); Lymphocytes # 1.4 K/mcL (0.6-4.6); Lymphocytes % 6.8 %; Mean Corpuscular HGB Conc 33.1 g/dL (31.6-35.5); Mean Corpuscular Hemoglobin 30.5 pg (28.0-33.3); Mean Corpuscular Volume 92.3 fL (83.0-100.0); Mean Platelet Volume 11.1 fL (9.4-12.4); Monocytes # 1.5 K/mcL (0.0-1.3); Monocytes % 7.2 %; Red Cell Distribution Width 15.2 % (11.5-14.5); Segmented Neutrophils % 78.9 %; White Blood Count 20.3 K/mcL (4.3-11.1)
[2021-10-29 04:31] LABS: Platelet Count 75 K/mcL (140-400)
[2021-10-29 04:36] LABS: Potassium 4.3 mEq/L (3.5-5.1)
[2021-10-29 04:59] LABS: Platelet Estimate Decreased (Normal)
[2021-10-29] MEDS: *HR* HYDROcodone/Acet 7.5/325 mg TABLET PO PRN (05:30)
[2021-10-29] MEDS: Budesonide/Formoterol 160/4.5 1 PUFF INH IH SCH ×2 (07:54→20:06)
[2021-10-29] MEDS: Gabapentin 300 MG CAPSULE PO SCH ×3 (08:38→21:31)
[2021-10-29] MEDS: hydrOXYzine pamoate 25 MG CAPSULE PO SCH ×3 (08:38→21:31)
[2021-10-29] MEDS: Famotidine 20 MG TABLET PO SCH (08:38)
[2021-10-29] MEDS: carvediloL 25 MG TABLET PO SCH ×2 (08:38→16:24)
[2021-10-29] MEDS: amLODIPine 5 MG TABLET PO SCH (08:39)
[2021-10-29] MEDS: Nicotine 21 MG PATCH.TD24 TD SCH (08:39)
[2021-10-29] MEDS: Apixaban 5 MG TABLET PO SCH ×2 (08:39→21:32)
[2021-10-29] MEDS: Nystatin SUSP 5 ML UD.LIQ PO SCH ×4 (08:40→21:32)
[2021-10-29] MEDS: predniSONE 10 MG TABLET PO SCH (08:40)
[2021-10-29] MEDS: Chlorhexidine Rinse 15 ML MOUTHWASH MM SCH (08:40)
[2021-10-29] MEDS: Ertapenem 1,000 MG in 0.9 % Sodium Chloride Mini Bag 100 ML IVPB SCH (08:40)
[2021-10-30 01:56] LABS: Basophils % 0.3 %; Monocytes % 6.9 %; Nucleated Red Blood Cells 0.2 /100 WBC (0); Red Cell Distribution Width 15.2 % (11.5-14.5)
[2021-10-30 01:58] LABS: Basophils # 0.1 K/mcL (0.0-0.2); Eosinophils # 0.2 K/mcL (0.0-0.6); Hematocrit 33.7 % (37.5-50.1); Immature Granulocytes % 4.4 % (0-4); Immature Platelets 8.3 % (1.1-6.1); Lymphocytes # 1.2 K/mcL (0.6-4.6); Lymphocytes % 6.3 %; Mean Corpuscular HGB Conc 32.6 g/dL (31.6-35.5); Mean Corpuscular Hemoglobin 30.3 pg (28.0-33.3); Mean Corpuscular Volume 92.8 fL (83.0-100.0); Mean Platelet Volume 10.4 fL (9.4-12.4); Monocytes # 1.4 K/mcL (0.0-1.3); Neutrophils # 15.8 K/mcL (1.6-8.9); Red Blood Count 3.63 M/mcL (4.19-5.50); Segmented Neutrophils % 81.1 %; White Blood Count 19.5 K/mcL (4.3-11.1)
[2021-10-30 01:59] LABS: Platelet Count 50 K/mcL (140-400)
[2021-10-30 02:12] LABS: BUN/Creatinine Ratio 40 (6-26); Blood Urea Nitrogen 55 mg/dL (8-23); Calcium 7.8 mg/dL (8.6-10.3); Carbon Dioxide 32 mEq/L (23-29); Chloride 101 mEq/L (98-107); Glucose 124 mg/dL (70-105); Osmolality,Calculated 305 (280-300); Potassium 4.4 mEq/L (3.5-5.1); Sodium 139 mEq/L (136-145); eGFR For African Americans > 60 (> 60); eGFR For Non-African Americans 53 (> 60)
[2021-10-30] MEDS: Ipratropium/Albuterol Neb 3 ML IH SCH ×6 (03:50→23:39)
[2021-10-30] MEDS: Budesonide/Formoterol 160/4.5 1 PUFF INH IH SCH ×2 (07:43→19:49)
[2021-10-30] MEDS: Ertapenem 1,000 MG in 0.9 % Sodium Chloride Mini Bag 100 ML IVPB SCH (08:16)
[2021-10-30] MEDS: Gabapentin 300 MG CAPSULE PO SCH ×3 (08:20→19:56)
[2021-10-30] MEDS: Apixaban 5 MG TABLET PO SCH ×2 (08:20→19:57)
[2021-10-30] MEDS: carvediloL 25 MG TABLET PO SCH ×2 (08:20→16:24)
[2021-10-30] MEDS: amLODIPine 5 MG TABLET PO SCH (08:20)
[2021-10-30] MEDS: predniSONE 20 MG TABLET PO SCH (08:20)
[2021-10-30] MEDS: hydrOXYzine pamoate 25 MG CAPSULE PO SCH ×3 (08:20→19:56)
[2021-10-30] MEDS: Nicotine 21 MG PATCH.TD24 TD SCH (08:20)
[2021-10-30] MEDS: Nystatin SUSP 5 ML UD.LIQ PO SCH ×4 (08:21→19:57)
[2021-10-30] MEDS: *HR* HYDROcodone/Acet 7.5/325 mg TABLET PO PRN ×2 (10:50→19:56)
[2021-10-30] MEDS: levoFLOXacin 750 MG TABLET PO SCH (16:24)
[2021-10-31] MEDS: Ipratropium/Albuterol Neb 3 ML IH SCH ×6 (03:52→23:50)
[2021-10-31 05:33] LABS: Hematocrit 32.9 % (37.5-50.1); Hemoglobin 10.3 g/dL (12.9-16.9); Mean Corpuscular HGB Conc 31.3 g/dL (31.6-35.5); Mean Corpuscular Hemoglobin 29.2 pg (28.0-33.3); Mean Corpuscular Volume 93.2 fL (83.0-100.0); Mean Platelet Volume 11.6 fL (9.4-12.4); Red Blood Count 3.53 M/mcL (4.19-5.50); Red Cell Distribution Width 15.4 % (11.5-14.5); White Blood Count 16.3 K/mcL (4.3-11.1)
[2021-10-31 05:35] LABS: Platelet Count 33 K/mcL (140-400)
[2021-10-31] MEDS: *HR* HYDROcodone/Acet 7.5/325 mg TABLET PO PRN ×4 (05:36→23:51)
[2021-10-31 06:44] LABS: BUN/Creatinine Ratio 45 (6-26); Blood Urea Nitrogen 59 mg/dL (8-23); Carbon Dioxide 31 mEq/L (23-29); Chloride 100 mEq/L (98-107); Glucose 129 mg/dL (70-105); Osmolality,Calculated 310 (280-300); Potassium 4.1 mEq/L (3.5-5.1); Sodium 141 mEq/L (136-145); eGFR For African Americans > 60 (> 60); eGFR For Non-African Americans 56 (> 60)
[2021-10-31] MEDS: Budesonide/Formoterol 160/4.5 1 PUFF INH IH SCH ×2 (07:40→20:28)
[2021-10-31] MEDS: Nystatin SUSP 5 ML UD.LIQ PO SCH ×4 (08:17→19:58)
[2021-10-31] MEDS: amLODIPine 5 MG TABLET PO SCH (08:17)
[2021-10-31] MEDS: levoFLOXacin 750 MG TABLET PO SCH (08:17)
[2021-10-31] MEDS: hydrOXYzine pamoate 25 MG CAPSULE PO SCH ×3 (08:17→19:58)
[2021-10-31] MEDS: predniSONE 20 MG TABLET PO SCH (08:17)
[2021-10-31] MEDS: carvediloL 25 MG TABLET PO SCH ×2 (08:17→16:00)
[2021-10-31] MEDS: Nicotine 21 MG PATCH.TD24 TD SCH (08:17)
[2021-10-31] MEDS: Gabapentin 300 MG CAPSULE PO SCH ×3 (08:18→19:58)
[2021-10-31] MEDS ORDERED: Apixaban 5 MG TABLET PO SCH (09:00)
[2021-10-31 15:41] LABS: Albumin 3.1 g/dL (3.5-5.7); Albumin/Globulin Ratio 1.7 (1.1-2.2); Bilirubin,Indirect 0.3 mg/dL (0.0-1.0); Bilirubin,Total 0.3 mg/dL (0.3-1.0); Globulin 1.8 g/dL (2.4-3.5); Total Protein 4.9 g/dL (6.4-8.9)
[2021-10-31] MEDS: Argatroban 250 MG in 0.9 % Sodium Chloride 250 ML IVC SCH (19:58)
[2021-10-31] MEDS ORDERED: Argatroban 250 MG in 0.9 % Sodium Chloride 250 ML IVC SCH (20:00)
[2021-11-01] MEDS: Ipratropium/Albuterol Neb 3 ML IH SCH ×6 (04:15→23:22)
[2021-11-01] MEDS: *HR* HYDROcodone/Acet 7.5/325 mg TABLET PO PRN ×2 (05:45→10:38)
[2021-11-01 06:05] LABS: Basophils % 0.1 %
[2021-11-01 06:18] LABS: BUN/Creatinine Ratio 39 (6-26); Blood Urea Nitrogen 54 mg/dL (8-23); Calcium 8.1 mg/dL (8.6-10.3); Carbon Dioxide 34 mEq/L (23-29); Chloride 101 mEq/L (98-107); Glucose 119 mg/dL (70-105); Osmolality,Calculated 306 (280-300); Potassium 4.5 mEq/L (3.5-5.1); Sodium 140 mEq/L (136-145); eGFR For African Americans > 60 (> 60); eGFR For Non-African Americans 53 (> 60)
[2021-11-01 06:24] LABS: Lymphocytes % 9.3 %
[2021-11-01 06:26] LABS: Eosinophils # 0.4 K/mcL (0.0-0.6); Eosinophils % 2.5 %; Hematocrit 30.4 % (37.5-50.1); Hemoglobin 9.5 g/dL (12.9-16.9); Immature Granulocytes % 2.5 % (0-4); Lymphocytes # 1.4 K/mcL (0.6-4.6); Mean Corpuscular HGB Conc 31.3 g/dL (31.6-35.5); Mean Corpuscular Hemoglobin 29.8 pg (28.0-33.3); Mean Corpuscular Volume 95.3 fL (83.0-100.0); Mean Platelet Volume 12.3 fL (9.4-12.4); Monocytes % 6.7 %; Nucleated Red Blood Cells 0.3 /100 WBC (0); Red Blood Count 3.19 M/mcL (4.19-5.50); Red Cell Distribution Width 15.2 % (11.5-14.5); Segmented Neutrophils % 78.9 %; White Blood Count 15.4 K/mcL (4.3-11.1)
[2021-11-01 06:30] LABS: Neutrophils # 12.2 K/mcL (1.6-8.9); Platelet Count 31 K/mcL (140-400)
[2021-11-01] MEDS: Budesonide/Formoterol 160/4.5 1 PUFF INH IH SCH ×2 (07:35→20:42)
[2021-11-01] MEDS: predniSONE 20 MG TABLET PO SCH (10:37)
[2021-11-01] MEDS: Gabapentin 300 MG CAPSULE PO SCH ×3 (10:37→20:42)
[2021-11-01] MEDS: hydrOXYzine pamoate 25 MG CAPSULE PO SCH ×3 (10:37→20:41)
[2021-11-01] MEDS: levoFLOXacin 750 MG TABLET PO SCH (10:37)
[2021-11-01] MEDS: amLODIPine 5 MG TABLET PO SCH (10:37)
[2021-11-01] MEDS: Nystatin SUSP 5 ML UD.LIQ PO SCH ×4 (10:38→20:42)
[2021-11-01] MEDS: Nicotine 21 MG PATCH.TD24 TD SCH (10:38)
[2021-11-01] MEDS: carvediloL 25 MG TABLET PO SCH ×2 (10:41→16:17)
[2021-11-01] MEDS ORDERED: polyethylene glycoL 3350 17 GM POWD.PACK PO PRN (16:24)
[2021-11-01] MEDS: Argatroban 250 MG in 0.9 % Sodium Chloride 250 ML IVC SCH (17:04)
[2021-11-02 01:49] LABS: Basophils % 0.1 %; Hemoglobin 8.7 g/dL (12.9-16.9)
[2021-11-02 01:51] LABS: Eosinophils # 0.3 K/mcL (0.0-0.6); Eosinophils % 1.4 %; Hematocrit 28.1 % (37.5-50.1); Immature Granulocytes % 2.3 % (0-4); Immature Platelets 9.1 % (1.1-6.1); Lymphocytes # 1.9 K/mcL (0.6-4.6); Mean Corpuscular Hemoglobin 29.6 pg (28.0-33.3); Mean Corpuscular Volume 95.6 fL (83.0-100.0); Mean Platelet Volume 11.9 fL (9.4-12.4); Monocytes # 1.4 K/mcL (0.0-1.3); Monocytes % 6.6 %; Nucleated Red Blood Cells 0.4 /100 WBC (0); Red Blood Count 2.94 M/mcL (4.19-5.50); Red Cell Distribution Width 15.4 % (11.5-14.5); Segmented Neutrophils % 80.6 %; White Blood Count 21.1 K/mcL (4.3-11.1)
[2021-11-02 01:52] LABS: Platelet Count 40 K/mcL (140-400)
[2021-11-02] MEDS ORDERED: *HR* Metoprolol 5 MG/5 ML VIAL IVP ONE ×2 (02:05→03:58)
[2021-11-02] MEDS ORDERED: 0.9 % Sodium Chloride 500 ML IVC ONE ×2 (03:05→09:25)
[2021-11-02] MEDS: Ipratropium/Albuterol Neb 3 ML IH SCH ×6 (04:16→23:57)
[2021-11-02 05:55] LABS: Hematocrit 28.2 % (37.5-50.1); Hemoglobin 8.9 g/dL (12.9-16.9)
[2021-11-02 06:04] LABS: Basophils % 0.2 %; Eosinophils # 0.4 K/mcL (0.0-0.6); Eosinophils % 2.2 %; Immature Granulocytes % 2.7 % (0-4); Immature Platelets 8.1 % (1.1-6.1); Lymphocytes # 1.8 K/mcL (0.6-4.6); Lymphocytes % 9.6 %; Mean Corpuscular HGB Conc 31.2 g/dL (31.6-35.5); Mean Corpuscular Hemoglobin 29.7 pg (28.0-33.3); Mean Corpuscular Volume 95.3 fL (83.0-100.0); Mean Platelet Volume 11.5 fL (9.4-12.4); Monocytes # 1.3 K/mcL (0.0-1.3); Monocytes % 6.7 %; Neutrophils # 14.9 K/mcL (1.6-8.9); Nucleated Red Blood Cells 0.5 /100 WBC (0); Red Blood Count 2.96 M/mcL (4.19-5.50); Red Cell Distribution Width 15.5 % (11.5-14.5); Segmented Neutrophils % 78.6 %; White Blood Count 18.9 K/mcL (4.3-11.1)
[2021-11-02 06:05] LABS: ABG Base Excess 6 mEq/L (-2 to 3); ABG HCO3 31 mEq/L (21-27); ABG Oxygen Saturation 92 % (95-98); ABG PCO2 51 mmHg (35-45); ABG PO2 66 mmHg (85-104); ABG TCO2 33 mEq/L (20-26)
[2021-11-02 06:07] LABS: Platelet Count 35 K/mcL (140-400)
[2021-11-02] MEDS: amLODIPine 5 MG TABLET PO SCH (08:17)
[2021-11-02] MEDS: Nicotine 21 MG PATCH.TD24 TD SCH (08:17)
[2021-11-02] MEDS: Gabapentin 300 MG CAPSULE PO SCH ×3 (08:17→21:41)
[2021-11-02] MEDS: hydrOXYzine pamoate 25 MG CAPSULE PO SCH ×2 (08:17→14:47)
[2021-11-02] MEDS: predniSONE 20 MG TABLET PO SCH (08:18)
[2021-11-02] MEDS: Nystatin SUSP 5 ML UD.LIQ PO SCH ×4 (08:18→21:41)
[2021-11-02] MEDS: levoFLOXacin 750 MG TABLET PO SCH (08:18)
[2021-11-02] MEDS: carvediloL 25 MG TABLET PO SCH (08:18)
[2021-11-02] MEDS: *HR* HYDROcodone/Acet 7.5/325 mg TABLET PO PRN ×2 (08:18→13:02)
[2021-11-02 08:48] LABS: ABG Base Excess 7 mEq/L (-2 to 3); ABG HCO3 32 mEq/L (21-27); ABG Oxygen Saturation 91 % (95-98); ABG PCO2 51 mmHg (35-45); ABG PH 7.41 pH Units (7.32-7.45); ABG PO2 62 mmHg (85-104); ABG TCO2 34 mEq/L (20-26)
[2021-11-02] MEDS: Budesonide/Formoterol 160/4.5 1 PUFF INH IH SCH ×2 (08:55→20:33)
[2021-11-02] MEDS: Argatroban 250 MG in 0.9 % Sodium Chloride 250 ML IVC SCH (12:55)
[2021-11-02] MEDS ORDERED: Perflutren Lipid Microsphere 1.3 ML in 0.9 % Sodium Chloride 8.7 ML IVP PRN (15:56)
[2021-11-02] MEDS: *HR* HYDROcodone/Acet 5/325 mg TABLET PO PRN (23:47)
[2021-11-03] MEDS ORDERED: *HR* Metoprolol 5 MG/5 ML VIAL IVP PRN (00:42)
[2021-11-03] MEDS ORDERED: 0.9 % Sodium Chloride 1,000 ML IVC ONE (02:03)
[2021-11-03] MEDS: Ipratropium/Albuterol Neb 3 ML IH SCH ×4 (04:34→16:19)
[2021-11-03 06:38] LABS: INR 1.1
[2021-11-03 06:40] LABS: Activated Partial Thrombo Time 24.1 Seconds (26.0-36.0)
[2021-11-03 06:41] LABS: Basophils % 0.1 %; Eosinophils % 3.6 %; Mean Corpuscular Hemoglobin 30.5 pg (28.0-33.3)
[2021-11-03 06:43] LABS: Eosinophils # 0.6 K/mcL (0.0-0.6); Hematocrit 25.1 % (37.5-50.1); Immature Granulocytes % 1.4 % (0-4); Immature Platelets 8.2 % (1.1-6.1); Lymphocytes # 2.1 K/mcL (0.6-4.6); Lymphocytes % 12.7 %; Mean Corpuscular HGB Conc 31.9 g/dL (31.6-35.5); Mean Corpuscular Volume 95.8 fL (83.0-100.0); Mean Platelet Volume 12.5 fL (9.4-12.4); Monocytes # 1.1 K/mcL (0.0-1.3); Monocytes % 6.8 %; Neutrophils # 12.5 K/mcL (1.6-8.9); Nucleated Red Blood Cells 0.7 /100 WBC (0); Red Blood Count 2.62 M/mcL (4.19-5.50); Red Cell Distribution Width 15.9 % (11.5-14.5); Segmented Neutrophils % 75.4 %; White Blood Count 16.6 K/mcL (4.3-11.1)
[2021-11-03 06:45] LABS: BUN/Creatinine Ratio 39 (6-26); Blood Urea Nitrogen 54 mg/dL (8-23); Calcium 8.5 mg/dL (8.6-10.3); Carbon Dioxide 34 mEq/L (23-29); Chloride 102 mEq/L (98-107); Glucose 136 mg/dL (70-105); Osmolality,Calculated 313 (280-300); Sodium 143 mEq/L (136-145); eGFR For African Americans > 60 (> 60); eGFR For Non-African Americans 52 (> 60)
[2021-11-03 07:25] LABS: Platelet Count 33 K/mcL (140-400)
[2021-11-03 07:26] LABS: Platelet Estimate Decreased (Normal)
[2021-11-03] MEDS: predniSONE 20 MG TABLET PO SCH (07:51)
[2021-11-03] MEDS: Gabapentin 300 MG CAPSULE PO SCH ×3 (07:51→19:54)
[2021-11-03] MEDS: carvediloL 6.25 MG TABLET PO SCH ×2 (07:51→16:10)
[2021-11-03] MEDS: *HR* HYDROcodone/Acet 5/325 mg TABLET PO PRN ×2 (07:51→16:10)
[2021-11-03] MEDS: Nicotine 21 MG PATCH.TD24 TD SCH (07:52)
[2021-11-03] MEDS: Nystatin SUSP 5 ML UD.LIQ PO SCH ×4 (07:52→19:54)
[2021-11-03] MEDS: levoFLOXacin 750 MG TABLET PO SCH (07:52)
[2021-11-03] MEDS: hydrOXYzine pamoate 25 MG CAPSULE PO PRN (09:55)
[2021-11-03] MEDS: Budesonide/Formoterol 160/4.5 1 PUFF INH IH SCH ×2 (09:55→23:28)
[2021-11-03] MEDS: rOPINIRole 1 MG TABLET PO SCH ×3 (09:55→19:54)
[2021-11-03] MEDS: Levalbuterol Neb 1.25 MG/3 ML IH SCH (23:28)
[2021-11-04 02:35] LABS: Basophils % 0.1 %; Eosinophils % 3.4 %; Hemoglobin 7.1 g/dL (12.9-16.9); Red Cell Distribution Width 15.9 % (11.5-14.5)
[2021-11-04 02:36] LABS: Eosinophils # 0.4 K/mcL (0.0-0.6); Hematocrit 22.5 % (37.5-50.1); Immature Granulocytes % 1.2 % (0-4); Immature Platelets 8.6 % (1.1-6.1); Lymphocytes # 1.3 K/mcL (0.6-4.6); Lymphocytes % 10.5 %; Mean Corpuscular HGB Conc 31.6 g/dL (31.6-35.5); Mean Corpuscular Hemoglobin 30.5 pg (28.0-33.3); Mean Corpuscular Volume 96.6 fL (83.0-100.0); Mean Platelet Volume 12.3 fL (9.4-12.4); Neutrophils # 9.6 K/mcL (1.6-8.9); Nucleated Red Blood Cells 0.4 /100 WBC (0); Red Blood Count 2.33 M/mcL (4.19-5.50); Segmented Neutrophils % 76.8 %; White Blood Count 12.5 K/mcL (4.3-11.1)
[2021-11-04 02:40] LABS: Platelet Count 18 K/mcL (140-400)
[2021-11-04] MEDS ORDERED: *HR* Metoprolol 5 MG/5 ML VIAL IVP PRN (02:44)
[2021-11-04 02:47] LABS: % Iron Saturation 15 % (20-55); BUN/Creatinine Ratio 35 (6-26); Blood Urea Nitrogen 50 mg/dL (8-23); Calcium 8.5 mg/dL (8.6-10.3); Carbon Dioxide 34 mEq/L (23-29); Chloride 101 mEq/L (98-107); Glucose 102 mg/dL (70-105); Iron 45 mcg/dL (65-175); Osmolality,Calculated 306 (280-300); Potassium 4.5 mEq/L (3.5-5.1); Sodium 141 mEq/L (136-145); Transferrin 208 mg/dL (203-362); eGFR For African Americans > 60 (> 60); eGFR For Non-African Americans 51 (> 60)
[2021-11-04] MEDS: Levalbuterol Neb 1.25 MG/3 ML IH SCH ×4 (04:06→20:51)
[2021-11-04] MEDS ORDERED: 0.9 % Sodium Chloride 250 ML ONE (04:22)
[2021-11-04] MEDS: Nystatin SUSP 5 ML UD.LIQ PO SCH ×4 (07:57→20:56)
[2021-11-04] MEDS: Gabapentin 300 MG CAPSULE PO SCH ×3 (07:57→20:58)
[2021-11-04] MEDS: hydrOXYzine pamoate 25 MG CAPSULE PO PRN ×2 (07:57→18:48)
[2021-11-04] MEDS: *HR* HYDROcodone/Acet 5/325 mg TABLET PO PRN ×3 (07:57→18:49)
[2021-11-04] MEDS: levoFLOXacin 750 MG TABLET PO SCH (07:57)
[2021-11-04] MEDS: carvediloL 6.25 MG TABLET PO SCH ×2 (07:58→16:22)
[2021-11-04] MEDS: Nicotine 21 MG PATCH.TD24 TD SCH (07:59)
[2021-11-04] MEDS: rOPINIRole 1 MG TABLET PO SCH ×3 (07:59→20:58)
[2021-11-04] MEDS: Budesonide/Formoterol 160/4.5 1 PUFF INH IH SCH ×2 (08:04→20:49)
[2021-11-04 10:05] LABS: Hematocrit 24.1 % (37.5-50.1); Hemoglobin 7.5 g/dL (12.9-16.9); Mean Corpuscular HGB Conc 31.1 g/dL (31.6-35.5); Mean Corpuscular Hemoglobin 29.3 pg (28.0-33.3); Mean Corpuscular Volume 94.1 fL (83.0-100.0); Red Blood Count 2.56 M/mcL (4.19-5.50); Red Cell Distribution Width 16.4 % (11.5-14.5); White Blood Count 10.4 K/mcL (4.3-11.1)
[2021-11-04 10:07] LABS: Platelet Count 17 K/mcL (140-400)
[2021-11-04] MEDS ORDERED: 0.9 % Sodium Chloride 250 ML IVC SCH (10:15)
[2021-11-04] MEDS: DilTIAZem CD (24hr) 180 MG CAP.ER.24H PO SCH (10:17)
[2021-11-04 16:12] LABS: Hematocrit 24.9 % (37.5-50.1); Hemoglobin 7.7 g/dL (12.9-16.9); Mean Corpuscular HGB Conc 30.9 g/dL (31.6-35.5); Mean Corpuscular Hemoglobin 29.5 pg (28.0-33.3); Mean Corpuscular Volume 95.4 fL (83.0-100.0); Platelet Count 33 K/mcL (140-400); Red Blood Count 2.61 M/mcL (4.19-5.50); White Blood Count 9.6 K/mcL (4.3-11.1)
[2021-11-04] MEDS ORDERED: Nitroglycerin 0.4 MG TAB.SUBL SL PRN (18:19)
[2021-11-04 19:23] LABS: ABG Base Excess 8 mEq/L (-2 to 3); ABG HCO3 36 mEq/L (21-27); ABG Oxygen Saturation 94 % (95-98); ABG PCO2 72 mmHg (35-45); ABG PH 7.31 pH Units (7.32-7.45); ABG PO2 80 mmHg (85-104); ABG TCO2 38 mEq/L (20-26)
[2021-11-04] MEDS: Acetaminophen 325 MG TABLET PO PRN (20:58)
[2021-11-04] MEDS: Melatonin 3 MG TABLET PO PRN (20:58)
[2021-11-04] MEDS: QUEtiapine Fumarate 25 MG TABLET PO SCH (20:58)
[2021-11-04] MEDS ORDERED: 0.9 % Sodium Chloride 1,000 ML IVC ONE (21:42)
[2021-11-04] MEDS ORDERED: Furosemide 40 MG/4 ML VIAL IVP ONE (22:11)
[2021-11-04] MEDS ORDERED: Albumin 25% 25gram/100mL 25 GM/100 ML IV.SOLN IVC SCH (22:15)
[2021-11-04 22:20] LABS: Hematocrit 22.9 % (37.5-50.1); Hemoglobin 7.1 g/dL (12.9-16.9); Immature Platelets 5.6 % (1.1-6.1); Mean Corpuscular Hemoglobin 29.6 pg (28.0-33.3); Mean Corpuscular Volume 95.4 fL (83.0-100.0); Mean Platelet Volume 12.1 fL (9.4-12.4); Red Blood Count 2.4 M/mcL (4.19-5.50); Red Cell Distribution Width 16.7 % (11.5-14.5); White Blood Count 9.5 K/mcL (4.3-11.1)
[2021-11-05 00:38] LABS: ABG Base Excess 7 mEq/L (-2 to 3); ABG HCO3 34 mEq/L (21-27); ABG Oxygen Saturation 64 % (95-98); ABG PCO2 65 mmHg (35-45); ABG PH 7.33 pH Units (7.32-7.45); ABG PO2 37 mmHg (85-104); ABG TCO2 36 mEq/L (20-26)
[2021-11-05 02:41] LABS: Eosinophils # 0.4 K/mcL (0.0-0.6); Eosinophils % 5.7 %; Hemoglobin 6.8 g/dL (12.9-16.9); Immature Granulocytes % 0.8 % (0-4); Lymphocytes # 0.8 K/mcL (0.6-4.6); Lymphocytes % 10.8 %; Mean Corpuscular HGB Conc 30.9 g/dL (31.6-35.5); Mean Corpuscular Hemoglobin 29.6 pg (28.0-33.3); Mean Corpuscular Volume 95.7 fL (83.0-100.0); Mean Platelet Volume 12.3 fL (9.4-12.4); Monocytes # 0.6 K/mcL (0.0-1.3); Monocytes % 7.1 %; Neutrophils # 5.9 K/mcL (1.6-8.9); Nucleated Red Blood Cells 0.6 /100 WBC (0); Red Cell Distribution Width 16.8 % (11.5-14.5); Segmented Neutrophils % 75.6 %; White Blood Count 7.8 K/mcL (4.3-11.1)
[2021-11-05 02:44] LABS: Platelet Count 23 K/mcL (140-400)
[2021-11-05 03:00] LABS: Calcium 8.1 mg/dL (8.6-10.3); Potassium 4.2 mEq/L (3.5-5.1)
[2021-11-05] MEDS ORDERED: Calcium Gluconate 1gm/50mL 1 GM/50 ML BAG IVPB ONE (03:05)
[2021-11-05] MEDS: Levalbuterol Neb 1.25 MG/3 ML IH SCH ×4 (04:30→20:07)
[2021-11-05 05:18] LABS: ABG Base Excess 8 mEq/L (-2 to 3); ABG HCO3 34 mEq/L (21-27); ABG Oxygen Saturation 93 % (95-98); ABG PCO2 60 mmHg (35-45); ABG PH 7.37 pH Units (7.32-7.45); ABG PO2 73 mmHg (85-104); ABG TCO2 36 mEq/L (20-26)
[2021-11-05] MEDS ORDERED: 0.9 % Sodium Chloride 250 ML ONE (05:44)
[2021-11-05] MEDS: Gabapentin 300 MG CAPSULE PO SCH ×3 (07:50→21:47)
[2021-11-05] MEDS: DilTIAZem CD (24hr) 180 MG CAP.ER.24H PO SCH (07:50)
[2021-11-05] MEDS: *HR* HYDROcodone/Acet 5/325 mg TABLET PO PRN (07:50)
[2021-11-05] MEDS: rOPINIRole 1 MG TABLET PO SCH ×3 (07:50→21:45)
[2021-11-05] MEDS: hydrOXYzine pamoate 25 MG CAPSULE PO PRN (07:51)
[2021-11-05] MEDS: levoFLOXacin 750 MG TABLET PO SCH (07:51)
[2021-11-05] MEDS: Nicotine 21 MG PATCH.TD24 TD SCH (07:52)
[2021-11-05] MEDS: carvediloL 6.25 MG TABLET PO SCH ×2 (07:52→16:34)
[2021-11-05] MEDS: Budesonide/Formoterol 160/4.5 1 PUFF INH IH SCH ×2 (07:58→20:07)
[2021-11-05] MEDS: Nystatin SUSP 5 ML UD.LIQ PO SCH ×4 (08:04→21:45)
[2021-11-05] MEDS ORDERED: Furosemide 40 MG/4 ML VIAL IVP ONE (09:36)
[2021-11-05] MEDS ORDERED: Albumin 25% 25gram/100mL 25 GM/100 ML IV.SOLN IVPB ONE (09:38)
[2021-11-05] MEDS: Ertapenem 1,000 MG in 0.9 % Sodium Chloride Mini Bag 100 ML IVPB SCH (13:43)
[2021-11-05 14:01] LABS: ABG Base Excess 8 mEq/L (-2 to 3); ABG HCO3 35 mEq/L (21-27); ABG Oxygen Saturation 95 % (95-98); ABG PCO2 62 mmHg (35-45); ABG PH 7.36 pH Units (7.32-7.45); ABG PO2 83 mmHg (85-104); ABG TCO2 37 mEq/L (20-26)
[2021-11-05 15:47] LABS: Retculocyte # 0.12 M/mcL (0.05-0.10); Reticulocyte % 4.5 % (1.6-2.8)
[2021-11-05 15:48] LABS: Hematocrit 27.1 % (37.5-50.1); Hemoglobin 8.4 g/dL (12.9-16.9); Immature Platelets 6.7 % (1.1-6.1); Mean Corpuscular Hemoglobin 29.7 pg (28.0-33.3); Mean Corpuscular Volume 95.8 fL (83.0-100.0); Mean Platelet Volume 12.5 fL (9.4-12.4); Red Blood Count 2.83 M/mcL (4.19-5.50); Red Cell Distribution Width 16.3 % (11.5-14.5); White Blood Count 9.1 K/mcL (4.3-11.1)
[2021-11-05] MEDS ORDERED: 0.9 % Sodium Chloride 250 ML IVC SCH (16:00)
[2021-11-05 16:09] LABS: Lactate Dehydrogenase 265 Units/L (140-271)
[2021-11-05 16:25] LABS: Ferritin 89 ng/mL (20-250)
[2021-11-05] MEDS ORDERED: Iron Sucrose Complex 400 MG in 0.9 % Sodium Chloride 250 ML IVPB ONE (21:30)
[2021-11-05] MEDS: QUEtiapine Fumarate 25 MG TABLET PO SCH (21:44)
[2021-11-05 22:25] LABS: Basophils % 0.2 %; Eosinophils # 0.3 K/mcL (0.0-0.6); Eosinophils % 6.1 %; Hematocrit 24.6 % (37.5-50.1); Hemoglobin 7.7 g/dL (12.9-16.9); Immature Granulocytes % 0.8 % (0-4); Immature Platelets 4.7 % (1.1-6.1); Lymphocytes # 0.4 K/mcL (0.6-4.6); Lymphocytes % 7.9 %; Mean Corpuscular HGB Conc 31.3 g/dL (31.6-35.5); Mean Corpuscular Hemoglobin 29.6 pg (28.0-33.3); Mean Corpuscular Volume 94.6 fL (83.0-100.0); Mean Platelet Volume 12.2 fL (9.4-12.4); Monocytes # 0.3 K/mcL (0.0-1.3); Monocytes % 6.5 %; Neutrophils # 4.1 K/mcL (1.6-8.9); Nucleated Red Blood Cells 0.6 /100 WBC (0); Red Cell Distribution Width 16.3 % (11.5-14.5); Segmented Neutrophils % 78.5 %; White Blood Count 5.2 K/mcL (4.3-11.1)
[2021-11-05 22:40] LABS: Platelet Count 16 K/mcL (140-400)
[2021-11-06] MEDS: Levalbuterol Neb 1.25 MG/3 ML IH SCH ×4 (04:26→20:51)
[2021-11-06 04:44] LABS: BUN/Creatinine Ratio 33 (6-26); Basophils % 0.1 %; Blood Urea Nitrogen 41 mg/dL (8-23); Calcium 8.1 mg/dL (8.6-10.3); Carbon Dioxide 35 mEq/L (23-29); Chloride 102 mEq/L (98-107); Glucose 102 mg/dL (70-105); Lymphocytes % 7.8 %; Nucleated Red Blood Cells 0.4 /100 WBC (0); Osmolality,Calculated 308 (280-300); Potassium 3.8 mEq/L (3.5-5.1); Sodium 144 mEq/L (136-145); eGFR For African Americans > 60 (> 60); eGFR For Non-African Americans 59 (> 60)
[2021-11-06 04:46] LABS: Eosinophils # 0.4 K/mcL (0.0-0.6); Eosinophils % 5.2 %; Hemoglobin 7.8 g/dL (12.9-16.9); Immature Granulocytes % 1.2 % (0-4); Immature Platelets 6.3 % (1.1-6.1); Lymphocytes # 0.6 K/mcL (0.6-4.6); Mean Corpuscular HGB Conc 31.2 g/dL (31.6-35.5); Mean Corpuscular Hemoglobin 29.5 pg (28.0-33.3); Mean Corpuscular Volume 94.7 fL (83.0-100.0); Mean Platelet Volume 11.7 fL (9.4-12.4); Monocytes # 0.6 K/mcL (0.0-1.3); Monocytes % 7.5 %; Red Blood Count 2.64 M/mcL (4.19-5.50); Red Cell Distribution Width 16.2 % (11.5-14.5); Segmented Neutrophils % 78.2 %; White Blood Count 7.7 K/mcL (4.3-11.1)
[2021-11-06 05:02] LABS: Platelet Count 21 K/mcL (140-400)
[2021-11-06] MEDS: Budesonide/Formoterol 160/4.5 1 PUFF INH IH SCH ×2 (07:27→20:53)
[2021-11-06] MEDS: rOPINIRole 1 MG TABLET PO SCH ×3 (08:46→20:38)
[2021-11-06] MEDS: DilTIAZem CD (24hr) 180 MG CAP.ER.24H PO SCH (08:47)
[2021-11-06] MEDS: Ertapenem 1,000 MG in 0.9 % Sodium Chloride Mini Bag 100 ML IVPB SCH (08:47)
[2021-11-06] MEDS: Nystatin SUSP 5 ML UD.LIQ PO SCH ×4 (08:47→20:36)
[2021-11-06] MEDS: Gabapentin 300 MG CAPSULE PO SCH ×3 (08:47→20:39)
[2021-11-06] MEDS: Nicotine 21 MG PATCH.TD24 TD SCH (08:47)
[2021-11-06] MEDS: carvediloL 6.25 MG TABLET PO SCH ×2 (08:48→17:29)
[2021-11-06] MEDS ORDERED: *HR* LORazepam 2 MG/ML VIAL IVP ONE (09:48)
[2021-11-06 11:55] LABS: C-Reactive Protein 186 mg/L (Less than 10); Uric Acid 7.2 mg/dL (2.3-7.6)
[2021-11-06 12:14] LABS: Ferritin 215 ng/mL (20-250)
[2021-11-06] MEDS ORDERED: Morphine Sulfate 2 MG/ML SYRINGE IVP ONE (13:51)
[2021-11-06] MEDS: *HR* HYDROcodone/Acet 5/325 mg TABLET PO PRN ×2 (14:00→20:36)
[2021-11-06 14:15] LABS: Lactate Dehydrogenase 264 Units/L (140-271); Total Protein 5.2 g/dL (6.4-8.9)
[2021-11-06 16:44] LABS: Total Protein,Pleural Fluid 2.5 g/dL
[2021-11-06 17:24] LABS: Basophils % 0.1 %; Hemoglobin 8.2 g/dL (12.9-16.9); Nucleated Red Blood Cells 0.7 /100 WBC (0); Red Cell Distribution Width 16.6 % (11.5-14.5); Segmented Neutrophils % 77.3 %
[2021-11-06 17:26] LABS: Eosinophils % 5.5 %; Hematocrit 26.8 % (37.5-50.1); Immature Platelets 4.4 % (1.1-6.1); Lymphocytes # 0.7 K/mcL (0.6-4.6); Lymphocytes % 8.9 %; Mean Corpuscular HGB Conc 30.6 g/dL (31.6-35.5); Mean Corpuscular Hemoglobin 29.7 pg (28.0-33.3); Mean Corpuscular Volume 97.1 fL (83.0-100.0); Monocytes # 0.6 K/mcL (0.0-1.3); Monocytes % 7.2 %; Red Blood Count 2.76 M/mcL (4.19-5.50); White Blood Count 8.1 K/mcL (4.3-11.1)
[2021-11-06 17:30] LABS: Eosinophils # 0.5 K/mcL (0.0-0.6); Neutrophils # 6.3 K/mcL (1.6-8.9); Platelet Count 59 K/mcL (140-400)
[2021-11-06 19:00] LABS: RBC,Pleural Fluid 28000 RBC/mcL
[2021-11-06 19:04] LABS: Appearance of Pleural Fl Bloody (Clear); Basophils,Pleural Fluid 0 %; Monocytes,Pleural Fluid 0 %
[2021-11-06] MEDS: QUEtiapine Fumarate 25 MG TABLET PO SCH (20:37)
[2021-11-06] MEDS: Melatonin 3 MG TABLET PO PRN (20:37)
[2021-11-07 03:54] LABS: VBG Ionized Calcium 1.08 mmol/L (1.15-1.35)
[2021-11-07 04:12] LABS: Hemoglobin 8.4 g/dL (12.9-16.9); Immature Granulocytes % 1.1 % (0-4); Lymphocytes % 9.9 %; Mean Corpuscular Hemoglobin 29.5 pg (28.0-33.3); Mean Corpuscular Volume 98.2 fL (83.0-100.0); Red Blood Count 2.85 M/mcL (4.19-5.50)
[2021-11-07 04:14] LABS: Basophils % 0.3 %; Eosinophils # 0.6 K/mcL (0.0-0.6); Eosinophils % 7.5 %; Immature Platelets 4.2 % (1.1-6.1); Lymphocytes # 0.7 K/mcL (0.6-4.6); Mean Platelet Volume 11.4 fL (9.4-12.4); Monocytes # 0.5 K/mcL (0.0-1.3); Monocytes % 6.7 %; Neutrophils # 5.6 K/mcL (1.6-8.9); Nucleated Red Blood Cells 0.8 /100 WBC (0); Red Cell Distribution Width 16.2 % (11.5-14.5); Segmented Neutrophils % 74.5 %; White Blood Count 7.5 K/mcL (4.3-11.1)
[2021-11-07 04:17] LABS: Platelet Count 51 K/mcL (140-400)
[2021-11-07] MEDS: Levalbuterol Neb 1.25 MG/3 ML IH SCH ×4 (04:21→21:46)
[2021-11-07 04:29] LABS: Alanine Aminotransferase 8 Units/L (7-52); Albumin 2.8 g/dL (3.5-5.7); Albumin/Globulin Ratio 1.2 (1.1-2.2); Alkaline Phosphatase 52 Units/L (34-104); Aspartate Amino Transferase 11 Units/L (13-39); BUN/Creatinine Ratio 25 (6-26); Bilirubin,Indirect 0.3 mg/dL (0.0-1.0); Bilirubin,Total 0.3 mg/dL (0.3-1.0); Blood Urea Nitrogen 35 mg/dL (8-23); Carbon Dioxide 39 mEq/L (23-29); Chloride 102 mEq/L (98-107); Globulin 2.3 g/dL (2.4-3.5); Glucose 108 mg/dL (70-105); Osmolality,Calculated 307 (280-300); Phosphorous 3.6 mg/dL (2.7-4.5); Sodium 144 mEq/L (136-145); Total Protein 5.1 g/dL (6.4-8.9); eGFR For African Americans > 60 (> 60); eGFR For Non-African Americans 52 (> 60)
[2021-11-07] MEDS: Nicotine 21 MG PATCH.TD24 TD SCH (09:23)
[2021-11-07] MEDS: DilTIAZem CD (24hr) 180 MG CAP.ER.24H PO SCH (09:23)
[2021-11-07] MEDS: rOPINIRole 1 MG TABLET PO SCH ×3 (09:23→20:24)
[2021-11-07] MEDS: Nystatin SUSP 5 ML UD.LIQ PO SCH ×4 (09:23→20:23)
[2021-11-07] MEDS: carvediloL 6.25 MG TABLET PO SCH ×2 (09:23→16:45)
[2021-11-07] MEDS: Gabapentin 300 MG CAPSULE PO SCH ×3 (09:23→20:24)
[2021-11-07] MEDS: Ertapenem 1,000 MG in 0.9 % Sodium Chloride Mini Bag 100 ML IVPB SCH (09:24)
[2021-11-07] MEDS: Budesonide/Formoterol 160/4.5 1 PUFF INH IH SCH ×2 (11:11→21:47)
[2021-11-07] MEDS: Acetylcysteine 10% 2 ML INHSOL IH SCH ×2 (15:36→21:47)
[2021-11-07] MEDS: QUEtiapine Fumarate 25 MG TABLET PO SCH (20:23)
[2021-11-07] MEDS: Melatonin 3 MG TABLET PO PRN (20:24)
[2021-11-08 02:55] LABS: ABG Base Excess 10 mEq/L (-2 to 3); ABG HCO3 37 mEq/L (21-27); ABG Oxygen Saturation 95 % (95-98); ABG PCO2 60 mmHg (35-45); ABG PH 7.39 pH Units (7.32-7.45); ABG PO2 76 mmHg (85-104); ABG TCO2 38 mEq/L (20-26); Blood Gas Modality 15LPM
[2021-11-08 03:47] LABS: VBG Ionized Calcium 1.11 mmol/L (1.15-1.35)
[2021-11-08 03:56] LABS: Basophils % 0.1 %; Immature Granulocytes % 0.9 % (0-4); Nucleated Red Blood Cells 0.6 /100 WBC (0)
[2021-11-08] MEDS: Levalbuterol Neb 1.25 MG/3 ML IH SCH ×4 (03:57→22:25)
[2021-11-08 03:58] LABS: Eosinophils # 0.5 K/mcL (0.0-0.6); Hematocrit 28.3 % (37.5-50.1); Hemoglobin 8.5 g/dL (12.9-16.9); Immature Platelets 5.5 % (1.1-6.1); Lymphocytes # 0.6 K/mcL (0.6-4.6); Lymphocytes % 8.6 %; Mean Corpuscular Hemoglobin 29.4 pg (28.0-33.3); Mean Corpuscular Volume 97.9 fL (83.0-100.0); Mean Platelet Volume 11.2 fL (9.4-12.4); Monocytes # 0.5 K/mcL (0.0-1.3); Monocytes % 6.8 %; Neutrophils # 5.3 K/mcL (1.6-8.9); Red Blood Count 2.89 M/mcL (4.19-5.50); Red Cell Distribution Width 16.3 % (11.5-14.5); Segmented Neutrophils % 76.6 %; White Blood Count 6.9 K/mcL (4.3-11.1)
[2021-11-08] MEDS: Acetylcysteine 10% 2 ML INHSOL IH SCH ×4 (03:58→22:26)
[2021-11-08 04:28] LABS: Alanine Aminotransferase 8 Units/L (7-52); Albumin 2.7 g/dL (3.5-5.7); Albumin/Globulin Ratio 1.1 (1.1-2.2); Alkaline Phosphatase 53 Units/L (34-104); Aspartate Amino Transferase 22 Units/L (13-39); BUN/Creatinine Ratio 26 (6-26); Bilirubin,Indirect 0.4 mg/dL (0.0-1.0); Bilirubin,Total 0.4 mg/dL (0.3-1.0); Blood Urea Nitrogen 31 mg/dL (8-23); Calcium 8.1 mg/dL (8.6-10.3); Carbon Dioxide 40 mEq/L (23-29); Chloride 101 mEq/L (98-107); Globulin 2.5 g/dL (2.4-3.5); Glucose 115 mg/dL (70-105); Magnesium 2.1 mg/dL (1.6-2.6); Osmolality,Calculated 305 (280-300); Phosphorous 2.3 mg/dL (2.7-4.5); Potassium 4.1 mEq/L (3.5-5.1); Sodium 144 mEq/L (136-145); Total Protein 5.2 g/dL (6.4-8.9); eGFR For African Americans > 60 (> 60); eGFR For Non-African Americans > 60 (> 60)
[2021-11-08 04:31] LABS: Platelet Count 36 K/mcL (140-400)
[2021-11-08] MEDS: Budesonide/Formoterol 160/4.5 1 PUFF INH IH SCH ×3 (08:10→22:28)
[2021-11-08] MEDS: carvediloL 6.25 MG TABLET PO SCH ×2 (09:12→18:07)
[2021-11-08] MEDS: Nystatin SUSP 5 ML UD.LIQ PO SCH ×4 (09:12→20:13)
[2021-11-08] MEDS: rOPINIRole 1 MG TABLET PO SCH ×3 (09:12→20:14)
[2021-11-08] MEDS: Gabapentin 300 MG CAPSULE PO SCH ×3 (09:12→20:13)
[2021-11-08] MEDS: Nicotine 21 MG PATCH.TD24 TD SCH (09:12)
[2021-11-08] MEDS: Ertapenem 1,000 MG in 0.9 % Sodium Chloride Mini Bag 100 ML IVPB SCH (09:12)
[2021-11-08] MEDS: DilTIAZem CD (24hr) 180 MG CAP.ER.24H PO SCH (09:21)
[2021-11-08] MEDS ORDERED: DilTIAZem CD (24hr) 180 MG CAP.ER.24H PO SCH (15:00)
[2021-11-08] MEDS: Dexmedetomidine HCl 400 MCG/100 ML MLS IVC SCH (16:01)
[2021-11-08 18:09] LABS: Hematocrit 27.1 % (37.5-50.1); Hemoglobin 8.2 g/dL (12.9-16.9)
[2021-11-08] MEDS: QUEtiapine Fumarate 25 MG TABLET PO SCH (20:14)
[2021-11-09] MEDS: Dexmedetomidine HCl 400 MCG/100 ML MLS IVC SCH ×5 (02:23→22:47)
[2021-11-09] MEDS: Levalbuterol Neb 1.25 MG/3 ML IH SCH ×4 (03:50→20:11)
[2021-11-09] MEDS: Acetylcysteine 10% 2 ML INHSOL IH SCH ×4 (03:51→20:11)
[2021-11-09 04:23] LABS: Basophils % 0.1 %; Hemoglobin 8.8 g/dL (12.9-16.9); Mean Corpuscular Volume 100.3 fL (83.0-100.0); Monocytes % 8.9 %; Nucleated Red Blood Cells 0.4 /100 WBC (0); Red Cell Distribution Width 16.2 % (11.5-14.5)
[2021-11-09 04:25] LABS: Eosinophils # 0.5 K/mcL (0.0-0.6); Eosinophils % 7.5 %; Hematocrit 29.4 % (37.5-50.1); Immature Platelets 6.6 % (1.1-6.1); Lymphocytes # 0.9 K/mcL (0.6-4.6); Lymphocytes % 12.1 %; Mean Corpuscular HGB Conc 29.9 g/dL (31.6-35.5); Mean Platelet Volume 12.3 fL (9.4-12.4); Monocytes # 0.6 K/mcL (0.0-1.3); Red Blood Count 2.93 M/mcL (4.19-5.50); Segmented Neutrophils % 70.4 %; White Blood Count 7.2 K/mcL (4.3-11.1)
[2021-11-09 04:25] LABS: VBG Ionized Calcium 1.11 mmol/L (1.15-1.35)
[2021-11-09 04:29] LABS: Neutrophils # 5.1 K/mcL (1.6-8.9); Platelet Count 28 K/mcL (140-400)
[2021-11-09 04:40] LABS: Alanine Aminotransferase 8 Units/L (7-52); Albumin 2.7 g/dL (3.5-5.7); Alkaline Phosphatase 53 Units/L (34-104); Aspartate Amino Transferase 14 Units/L (13-39); BUN/Creatinine Ratio 25 (6-26); Bilirubin,Indirect 0.3 mg/dL (0.0-1.0); Bilirubin,Total 0.3 mg/dL (0.3-1.0); Blood Urea Nitrogen 34 mg/dL (8-23); Calcium 8.1 mg/dL (8.6-10.3); Carbon Dioxide 39 mEq/L (23-29); Chloride 103 mEq/L (98-107); Globulin 2.6 g/dL (2.4-3.5); Glucose 105 mg/dL (70-105); Magnesium 2.2 mg/dL (1.6-2.6); Osmolality,Calculated 310 (280-300); Potassium 4.6 mEq/L (3.5-5.1); Sodium 146 mEq/L (136-145); Total Protein 5.3 g/dL (6.4-8.9); eGFR For African Americans > 60 (> 60); eGFR For Non-African Americans 54 (> 60)
[2021-11-09] MEDS ORDERED: Artificial Tears SOLN 15 ML BOTTLE BOTH EYES PRN (08:51)
[2021-11-09] MEDS ORDERED: Ipratropium/Albuterol Neb 3 ML IH PRN (08:53)
[2021-11-09] MEDS: FentaNYL (PF) 1,000 MCG/100 ML IV.SOLN IVC SCH ×3 (08:56→20:08)
[2021-11-09] MEDS ORDERED: Pantoprazole 40 MG VIAL IVP SCH (09:00)
[2021-11-09] MEDS: Budesonide/Formoterol 160/4.5 1 PUFF INH IH SCH ×2 (09:15→20:11)
[2021-11-09] MEDS: Ertapenem 1,000 MG in 0.9 % Sodium Chloride Mini Bag 100 ML IVPB SCH (09:31)
[2021-11-09] MEDS: Nystatin SUSP 5 ML UD.LIQ PO SCH ×4 (09:32→19:56)
[2021-11-09] MEDS: Chlorhexidine Rinse 15 ML MOUTHWASH MM SCH ×2 (09:32→19:56)
[2021-11-09] MEDS: Nicotine 21 MG PATCH.TD24 TD SCH (09:32)
[2021-11-09] MEDS: carvediloL 6.25 MG TABLET PO SCH ×2 (09:37→19:52)
[2021-11-09 09:43] LABS: INR 1.1; Prothrombin Time 12.4 Seconds (9.4-12.1)
[2021-11-09 09:45] LABS: Activated Partial Thrombo Time 24.8 Seconds (26.0-36.0)
[2021-11-09 09:56] LABS: ABG Base Excess 10 mEq/L (-2 to 3); ABG HCO3 39 mEq/L (21-27); ABG Oxygen Saturation 96 % (95-98); ABG PCO2 83 mmHg (35-45); ABG PH 7.28 pH Units (7.32-7.45); ABG PO2 94 mmHg (85-104); ABG TCO2 42 mEq/L (20-26); Blood Gas VT 480 cc
[2021-11-09 10:49] LABS: Cholesterol,Body Fluid 74 mg/dL; Fluid Source for Cholesterol PLEURAL FLUID; Fluid Source for Triglycerides PLEURAL FLUID; Triglycerides,Body Fluid 39 mg/dL
[2021-11-09 12:08] LABS: ABG Base Excess 10 mEq/L (-2 to 3); ABG HCO3 38 mEq/L (21-27); ABG Oxygen Saturation 97 % (95-98); ABG PCO2 71 mmHg (35-45); ABG PH 7.33 pH Units (7.32-7.45); ABG PO2 97 mmHg (85-104); ABG TCO2 40 mEq/L (20-26); Blood Gas VT 480 cc
[2021-11-09] MEDS ORDERED: *HR* Etomidate 20 MG/10 ML AMPUL IVP ONE (17:44)
[2021-11-09] MEDS ORDERED: *HR* Midazolam HCl 5 MG/5 ML VIAL IVP ONE (17:44)
[2021-11-09] MEDS ORDERED: *HR* Propofol 200 MG/20 ML VIAL IVP ONE (17:44)
[2021-11-09 18:06] LABS: Basophils % 0.2 %; Red Blood Count 2.85 M/mcL (4.19-5.50); Red Cell Distribution Width 16.2 % (11.5-14.5)
[2021-11-09 18:08] LABS: Eosinophils # 0.6 K/mcL (0.0-0.6); Eosinophils % 11.3 %; Hematocrit 28.2 % (37.5-50.1); Hemoglobin 8.4 g/dL (12.9-16.9); Immature Platelets 5.9 % (1.1-6.1); Lymphocytes # 0.8 K/mcL (0.6-4.6); Lymphocytes % 15.5 %; Mean Corpuscular HGB Conc 29.8 g/dL (31.6-35.5); Mean Corpuscular Hemoglobin 29.5 pg (28.0-33.3); Mean Corpuscular Volume 98.9 fL (83.0-100.0); Monocytes % 9.1 %; Neutrophils # 3.1 K/mcL (1.6-8.9); Nucleated Red Blood Cells 0.8 /100 WBC (0); Segmented Neutrophils % 62.9 %; White Blood Count 4.9 K/mcL (4.3-11.1)
[2021-11-09 18:09] LABS: Monocytes # 0.5 K/mcL (0.0-1.3); Platelet Count 42 K/mcL (140-400)
[2021-11-09] MEDS: Artificial Tears SOLN 15 ML BOTTLE BOTH EYES SCH ×4 (19:51→23:15)
[2021-11-09] MEDS: Gabapentin 300 MG CAPSULE GTUBE SCH ×2 (19:52→20:15)
[2021-11-09] MEDS: Pantoprazole 40 MG VIAL IVP SCH (19:56)
[2021-11-09] MEDS: Docusate Oral Soln 100 MG/10 ML UDC GTUBE SCH (20:15)
[2021-11-09] MEDS: QUEtiapine Fumarate 25 MG TABLET GTUBE SCH (20:15)
[2021-11-10 00:50] LABS: VBG Ionized Calcium 1.02 mmol/L (1.15-1.35)
[2021-11-10 00:54] LABS: Basophils % 0.3 %; Eosinophils # 0.8 K/mcL (0.0-0.6); Eosinophils % 11.4 %; Hematocrit 30.9 % (37.5-50.1); Hemoglobin 9.1 g/dL (12.9-16.9); Immature Granulocytes % 2.6 % (0-4); Immature Platelets 7.2 % (1.1-6.1); Lymphocytes # 1.7 K/mcL (0.6-4.6); Lymphocytes % 23.3 %; Mean Corpuscular HGB Conc 29.4 g/dL (31.6-35.5); Mean Corpuscular Hemoglobin 29.5 pg (28.0-33.3); Mean Corpuscular Volume 100.3 fL (83.0-100.0); Mean Platelet Volume 10.8 fL (9.4-12.4); Monocytes # 0.7 K/mcL (0.0-1.3); Monocytes % 9.5 %; Nucleated Red Blood Cells 1.5 /100 WBC (0); Red Blood Count 3.08 M/mcL (4.19-5.50); Red Cell Distribution Width 16.5 % (11.5-14.5); Segmented Neutrophils % 52.9 %; White Blood Count 7.3 K/mcL (4.3-11.1)
[2021-11-10 00:59] LABS: Neutrophils # 3.9 K/mcL (1.6-8.9); Platelet Count 68 K/mcL (140-400)
[2021-11-10 01:05] LABS: Albumin 2.8 g/dL (3.5-5.7); Bilirubin,Total 0.4 mg/dL (0.3-1.0); Calcium 8.2 mg/dL (8.6-10.3); Globulin 2.8 g/dL (2.4-3.5); Magnesium 2.3 mg/dL (1.6-2.6); Phosphorous 3.9 mg/dL (2.7-4.5); Potassium 4.2 mEq/L (3.5-5.1); Total Protein 5.6 g/dL (6.4-8.9)
[2021-11-10] MEDS: FentaNYL (PF) 1,000 MCG/100 ML IV.SOLN IVC SCH ×4 (03:04→22:52)
[2021-11-10] MEDS: Dexmedetomidine HCl 400 MCG/100 ML MLS IVC SCH ×3 (03:13→16:06)
[2021-11-10] MEDS: Artificial Tears SOLN 15 ML BOTTLE BOTH EYES SCH ×6 (03:36→23:36)
[2021-11-10] MEDS: Levalbuterol Neb 1.25 MG/3 ML IH SCH ×4 (03:54→20:10)
[2021-11-10] MEDS: Acetylcysteine 10% 2 ML INHSOL IH SCH ×3 (03:55→15:10)
[2021-11-10 04:41] LABS: ABG Base Excess 9 mEq/L (-2 to 3); ABG HCO3 35 mEq/L (21-27); ABG Oxygen Saturation 97 % (95-98); ABG PCO2 59 mmHg (35-45); ABG PH 7.39 pH Units (7.32-7.45); ABG PO2 98 mmHg (85-104); ABG TCO2 37 mEq/L (20-26); Blood Gas VT 480 cc
[2021-11-10] MEDS: Pantoprazole 40 MG VIAL IVP SCH ×2 (05:33→17:51)
[2021-11-10] MEDS: Budesonide/Formoterol 160/4.5 1 PUFF INH IH SCH ×2 (07:26→20:10)
[2021-11-10] MEDS: carvediloL 6.25 MG TABLET PO SCH ×2 (07:47→16:42)
[2021-11-10] MEDS: Docusate Oral Soln 100 MG/10 ML UDC GTUBE SCH ×2 (07:48→20:00)
[2021-11-10] MEDS: Chlorhexidine Rinse 15 ML MOUTHWASH MM SCH ×2 (07:48→20:00)
[2021-11-10] MEDS: Gabapentin 300 MG CAPSULE GTUBE SCH ×3 (07:50→20:00)
[2021-11-10] MEDS: Nystatin SUSP 5 ML UD.LIQ PO SCH ×4 (07:50→20:00)
[2021-11-10] MEDS: Nicotine 21 MG PATCH.TD24 TD SCH (07:50)
[2021-11-10] MEDS: Ertapenem 1,000 MG in 0.9 % Sodium Chloride Mini Bag 100 ML IVPB SCH (08:27)
[2021-11-10] MEDS: Calcium Gluconate 1gm/50mL 1 GM/50 ML BAG IVPB SCH ×2 (14:23→15:13)
[2021-11-10] MEDS: Albumin Human 5% 12.5 GM/250 ML IV.SOLN IVC SCH ×2 (16:36→17:17)
[2021-11-10] MEDS: Norepinephrine 4 MG/254 ML IV.SOLN IVC SCH (17:18)
[2021-11-10] MEDS ORDERED: Phenylephrine 20 MG in 0.9 % Sodium Chloride 250 ML IVC SCH (19:15)
[2021-11-10] MEDS ORDERED: Amiodarone Premix 150 MG/100 ML BAG IVPB ONE (19:15)
[2021-11-10] MEDS ORDERED: Amiodarone Premix 360 MG/200 ML BAG IVC ONE (19:15)
[2021-11-10] MEDS: QUEtiapine Fumarate 25 MG TABLET GTUBE SCH (20:00)
[2021-11-10] MEDS: Phenylephrine 100 MG in 0.9 % Sodium Chloride 250 ML IVC SCH (22:39)
[2021-11-10] MEDS ORDERED: Albumin 25% 25gram/100mL 25 GM/100 ML IV.SOLN IVPB ONE (23:56)
[2021-11-11 00:26] LABS: VBG Ionized Calcium 1.09 mmol/L (1.15-1.35)
[2021-11-11 00:36] LABS: Basophils % 0.2 %; Hemoglobin 7.8 g/dL (12.9-16.9); Monocytes % 11.1 %
[2021-11-11 00:38] LABS: Eosinophils # 1.1 K/mcL (0.0-0.6); Eosinophils % 11.8 %; Hematocrit 25.5 % (37.5-50.1); Immature Granulocytes % 2.5 % (0-4); Immature Platelets 7.6 % (1.1-6.1); Mean Corpuscular HGB Conc 30.6 g/dL (31.6-35.5); Mean Corpuscular Volume 98.1 fL (83.0-100.0); Mean Platelet Volume 10.9 fL (9.4-12.4); Neutrophils # 5.7 K/mcL (1.6-8.9); Nucleated Red Blood Cells 1.7 /100 WBC (0); Platelet Count 100 K/mcL (140-400); Red Cell Distribution Width 16.4 % (11.5-14.5); Segmented Neutrophils % 63.4 %
[2021-11-11] MEDS ORDERED: Amiodarone 450 MG in 0.9 % Sodium Chloride Excel Bg 241 ML IVC SCH (01:15)
[2021-11-11] MEDS ORDERED: Amiodarone Premix 360 MG/200 ML BAG IVC SCH (01:15)
[2021-11-11] MEDS ORDERED: Amiodarone Premix 360 MG/200 ML BAG IVC ONE (02:05)
[2021-11-11 02:43] LABS: Albumin 2.8 g/dL (3.5-5.7); Albumin/Globulin Ratio 1.2 (1.1-2.2); Bilirubin,Total 0.4 mg/dL (0.3-1.0); Calcium 8.1 mg/dL (8.6-10.3); Globulin 2.4 g/dL (2.4-3.5); Magnesium 2.5 mg/dL (1.6-2.6); Potassium 4.3 mEq/L (3.5-5.1); Total Protein 5.2 g/dL (6.4-8.9)
[2021-11-11] MEDS: Levalbuterol Neb 1.25 MG/3 ML IH SCH ×4 (03:51→21:51)
[2021-11-11] MEDS: Artificial Tears SOLN 15 ML BOTTLE BOTH EYES SCH ×6 (03:56→23:41)
[2021-11-11 04:42] LABS: ABG Base Excess 7 mEq/L (-2 to 3); ABG HCO3 34 mEq/L (21-27); ABG Oxygen Saturation 89 % (95-98); ABG PCO2 72 mmHg (35-45); ABG PH 7.28 pH Units (7.32-7.45); ABG PO2 67 mmHg (85-104); ABG TCO2 36 mEq/L (20-26); Blood Gas VT 480 cc
[2021-11-11] MEDS: Pantoprazole 40 MG VIAL IVP SCH (05:17)
[2021-11-11] MEDS: FentaNYL (PF) 1,000 MCG/100 ML IV.SOLN IVC SCH ×3 (05:30→18:25)
[2021-11-11] MEDS: Phenylephrine 100 MG in 0.9 % Sodium Chloride 250 ML IVC SCH ×3 (06:38→21:35)
[2021-11-11] MEDS: Chlorhexidine Rinse 15 ML MOUTHWASH MM SCH ×2 (07:24→19:57)
[2021-11-11] MEDS: Nystatin SUSP 5 ML UD.LIQ PO SCH ×4 (07:24→19:57)
[2021-11-11] MEDS: Docusate Oral Soln 100 MG/10 ML UDC GTUBE SCH ×2 (07:24→19:57)
[2021-11-11] MEDS: Ertapenem 1,000 MG in 0.9 % Sodium Chloride Mini Bag 100 ML IVPB SCH (07:24)
[2021-11-11] MEDS: Nicotine 21 MG PATCH.TD24 TD SCH (07:25)
[2021-11-11] MEDS: Gabapentin 300 MG CAPSULE GTUBE SCH (07:25)
[2021-11-11] MEDS: carvediloL 6.25 MG TABLET PO SCH (07:26)
[2021-11-11] MEDS: Norepinephrine 4 MG/254 ML IV.SOLN IVC SCH ×3 (07:27→23:41)
[2021-11-11] MEDS: Budesonide/Formoterol 160/4.5 1 PUFF INH IH SCH ×2 (08:07→21:51)
[2021-11-11] MEDS ORDERED: *HR* Heparin 5,000 UNIT/ML VIAL IVP PRN ×2 (09:42)
[2021-11-11] MEDS ORDERED: Ringers Solution, Lactated 1,000 ML IVC ONE (09:43)
[2021-11-11] MEDS ORDERED: Heparin 25,000UNIT/250ML 1/2NS 25,000 UNIT/250 ML IV.SOLN IVC SCH (09:45)
[2021-11-11] MEDS: Heparin 25,000UNIT/250ML 1/2NS 25,000 UNIT/250 ML IV.SOLN IVC SCH (10:20)
[2021-11-11 10:43] LABS: Heparin anti-factor XA UFH < 0.04 IU/mL (0.30-0.70); INR 1.2; Prothrombin Time 13.3 Seconds (9.4-12.1)
[2021-11-11] MEDS: Ringers Solution, Lactated 1,000 ML IVC SCH ×2 (11:48→19:56)
[2021-11-11] MEDS: Dexmedetomidine HCl 400 MCG/100 ML MLS IVC SCH ×2 (12:12→23:38)
[2021-11-11] MEDS: Amiodarone Premix 360 MG/200 ML BAG IVC SCH (13:52)
[2021-11-11 14:03] LABS: Bilirubin,Urine Negative (Negative); Blood,Urine Large (Negative); Clarity,Urine Turbid (Clear); Color,Urine Yellow (Yellow); Glucose,Urine (UA) Normal (Normal); Hyaline Casts,Urine Many per lpf (None Seen); Ketones,Urine Negative (Negative); Leukocyte Esterase,Urine Negative (Negative); Mucus,Urine Few per lpf (None-Few); Nitrite,Urine Negative (Negative); PH,Urine 5.5 pH Units (5.0-8.0); Protein,Urine 100 mg/dL (Neg-Trace); RBC,Urine 15-30 per hpf (0-3); Specific Gravity,Urine 1.028 (1.010-1.025)
[2021-11-11 14:12] LABS: Sodium, Urine 15.5 mEq/L
[2021-11-11 14:50] LABS: Uric Acid 9.5 mg/dL (2.3-7.6)
[2021-11-11 16:42] LABS: Heparin anti-factor XA UFH 0.41 IU/mL (0.30-0.70)
[2021-11-11 17:10] LABS: ABG Base Excess 3 mEq/L (-2 to 3); ABG HCO3 30 mEq/L (21-27); ABG Oxygen Saturation 91 % (95-98); ABG PCO2 59 mmHg (35-45); ABG PH 7.31 pH Units (7.32-7.45); ABG PO2 69 mmHg (85-104); ABG TCO2 32 mEq/L (20-26); Blood Gas Modality ASSIST CONTROL; Blood Gas VT 500 cc
[2021-11-11] MEDS: Albumin 25% 25gram/100mL 25 GM/100 ML IV.SOLN IVC SCH ×4 (18:09→23:40)
[2021-11-11 18:56] LABS: Activated Partial Thrombo Time 84.6 Seconds (26.0-36.0)
[2021-11-12] MEDS: FentaNYL (PF) 1,000 MCG/100 ML IV.SOLN IVC SCH ×3 (01:12→17:16)
[2021-11-12] MEDS: Amiodarone Premix 360 MG/200 ML BAG IVC SCH ×2 (01:27→14:00)
[2021-11-12] MEDS: Levalbuterol Neb 1.25 MG/3 ML IH SCH ×4 (03:48→20:40)
[2021-11-12 04:00] LABS: Red Cell Distribution Width 16.2 % (11.5-14.5)
[2021-11-12 04:02] LABS: Hemoglobin 6.1 g/dL (12.9-16.9); Immature Platelets 10.5 % (1.1-6.1); Mean Corpuscular HGB Conc 30.5 g/dL (31.6-35.5); Mean Corpuscular Volume 98.5 fL (83.0-100.0); Mean Platelet Volume 11.2 fL (9.4-12.4); Nucleated Red Blood Cells 3.9 /100 WBC (0); Red Blood Count 2.03 M/mcL (4.19-5.50); White Blood Count 4.1 K/mcL (4.3-11.1)
[2021-11-12 04:02] LABS: VBG Ionized Calcium 1.02 mmol/L (1.15-1.35)
[2021-11-12 04:04] LABS: Platelet Count 74 K/mcL (140-400)
[2021-11-12 04:18] LABS: Hypochromasia Present (Not Present)
[2021-11-12 04:19] LABS: Anisocytosis 1+ (Not Present); Microcytosis Present (Not Present); Platelet Estimate Decreased (Normal)
[2021-11-12] MEDS: Ringers Solution, Lactated 1,000 ML IVC SCH ×2 (04:19→14:03)
[2021-11-12] MEDS: Phenylephrine 100 MG in 0.9 % Sodium Chloride 250 ML IVC SCH ×5 (04:19→21:54)
[2021-11-12] MEDS: Artificial Tears SOLN 15 ML BOTTLE BOTH EYES SCH ×6 (04:19→23:36)
[2021-11-12 04:21] LABS: Albumin 3.5 g/dL (3.5-5.7); Albumin/Globulin Ratio 1.8 (1.1-2.2); Bilirubin,Total 0.7 mg/dL (0.3-1.0); Calcium 7.8 mg/dL (8.6-10.3); Eosinophils # 0.3 K/mcL (0.0-0.6); Lymphocytes # 0.7 K/mcL (0.6-4.6); Magnesium 2.5 mg/dL (1.6-2.6); Monocytes # 0.1 K/mcL (0.0-1.3); Phosphorous 6.1 mg/dL (2.7-4.5); Potassium 4.7 mEq/L (3.5-5.1); Total Protein 5.5 g/dL (6.4-8.9)
[2021-11-12] MEDS ORDERED: Calcium Gluconate 1gm/50mL 1 GM/50 ML BAG IVPB PRN (05:56)
[2021-11-12] MEDS ORDERED: 0.9 % Sodium Chloride 250 ML IVC SCH (06:00)
[2021-11-12] MEDS: Heparin 25,000UNIT/250ML 1/2NS 25,000 UNIT/250 ML IV.SOLN IVC SCH ×2 (06:26→23:36)
[2021-11-12 06:39] LABS: ABG Base Excess 1 mEq/L (-2 to 3); ABG HCO3 28 mEq/L (21-27); ABG Oxygen Saturation 89 % (95-98); ABG PCO2 65 mmHg (35-45); ABG PH 7.24 pH Units (7.32-7.45); ABG PO2 69 mmHg (85-104); ABG TCO2 30 mEq/L (20-26); Blood Gas Modality ASSIST CONTROL; Blood Gas VT 500 cc
[2021-11-12] MEDS: Budesonide/Formoterol 160/4.5 1 PUFF INH IH SCH ×2 (07:21→20:40)
[2021-11-12] MEDS ORDERED: 0.9 % Sodium Chloride 1,000 ML ONE (07:45)
[2021-11-12] MEDS: Ertapenem 1,000 MG in 0.9 % Sodium Chloride Mini Bag 100 ML IVPB SCH (09:05)
[2021-11-12] MEDS: Docusate Oral Soln 100 MG/10 ML UDC GTUBE SCH ×2 (09:06→20:31)
[2021-11-12] MEDS: Nystatin SUSP 5 ML UD.LIQ PO SCH ×4 (09:06→20:30)
[2021-11-12] MEDS: Chlorhexidine Rinse 15 ML MOUTHWASH MM SCH ×2 (09:07→20:30)
[2021-11-12 11:57] LABS: Eosinophils # 0.4 K/mcL (0.0-0.6); Hemoglobin 8.1 g/dL (12.9-16.9); Immature Platelets 12.4 % (1.1-6.1); Mean Corpuscular HGB Conc 31.2 g/dL (31.6-35.5); Mean Corpuscular Hemoglobin 30.2 pg (28.0-33.3); Mean Platelet Volume 12.1 fL (9.4-12.4); Nucleated Red Blood Cells 7.6 /100 WBC (0); Platelet Count 101 K/mcL (140-400); Red Blood Count 2.68 M/mcL (4.19-5.50); Red Cell Distribution Width 15.6 % (11.5-14.5)
[2021-11-12 12:16] LABS: Calcium 7.7 mg/dL (8.6-10.3); Potassium 5.8 mEq/L (3.5-5.1)
[2021-11-12 12:30] LABS: ABG Base Excess -5 mEq/L (-2 to 3); ABG HCO3 24 mEq/L (21-27); ABG Oxygen Saturation 71 % (95-98); ABG PCO2 70 mmHg (35-45); ABG PH 7.14 pH Units (7.32-7.45); ABG PO2 49 mmHg (85-104); ABG TCO2 26 mEq/L (20-26)
[2021-11-12 14:08] LABS: ABG Base Excess -5 mEq/L (-2 to 3); ABG HCO3 23 mEq/L (21-27); ABG Oxygen Saturation 98 % (95-98); ABG PCO2 58 mmHg (35-45); ABG PH 7.21 pH Units (7.32-7.45); ABG PO2 126 mmHg (85-104); ABG TCO2 25 mEq/L (20-26); Blood Gas Modality ASSIST CONTROL; Blood Gas VT 550 cc
[2021-11-12] MEDS: Norepinephrine 4 MG/254 ML IV.SOLN IVC SCH (14:45)
[2021-11-12 14:53] LABS: Appearance of Pleural Fl Bloody (Clear)
[2021-11-12 14:55] LABS: RBC,Pleural Fluid 573000 RBC/mcL
[2021-11-12 14:56] LABS: Total Protein,Pleural Fluid 3.3 g/dL
[2021-11-12 15:11] LABS: Lymphocytes # 0.6 K/mcL (0.6-4.6); Monocytes # 0.5 K/mcL (0.0-1.3); Neutrophils # 2.7 K/mcL (1.6-8.9)
[2021-11-12 15:12] LABS: Platelet Clumps Few (Not Present); Platelet Estimate Decreased (Normal)
[2021-11-12 15:13] LABS: Anisocytosis 1+ (Not Present); Poikilocytosis 1+ (Not Present); Polychromasia 1+ (Not Present)
[2021-11-12 16:46] LABS: Hematocrit 27.1 % (37.5-50.1); Hemoglobin 8.4 g/dL (12.9-16.9)
[2021-11-12 16:47] LABS: Basophils,Pleural Fluid 0 %; Lymphocytes,Pleural Fluid 0 %; Monocytes,Pleural Fluid 0 %
[2021-11-12] MEDS: Pantoprazole 40 MG VIAL IVP SCH (17:17)
[2021-11-12] MEDS ORDERED: D5% in Water 1,000 ML IVC PRN (20:23)
[2021-11-12] MEDS ORDERED: Dextrose 4 GM Chewable Tablets PO PRN ×2 (20:23)
[2021-11-12] MEDS: *HR* Dextrose 50 % in Water (Syg) 50 ML SYRINGE IVP PRN (20:34)
[2021-11-12] MEDS ORDERED: Meropenem 1,000 MG in 0.9 % Sodium Chloride 10 ML IVP SCH (21:00)
[2021-11-13] MEDS: Norepinephrine 4 MG/254 ML IV.SOLN IVC SCH (01:03)
[2021-11-13] MEDS ORDERED: D5 IVC SCH (01:30)
[2021-11-13] MEDS ORDERED: WATER IVC SCH (01:30)
[2021-11-13] MEDS ORDERED: PHENYLEPHRINE IVC SCH (01:30)
[2021-11-13] MEDS: Amiodarone Premix 360 MG/200 ML BAG IVC SCH (02:00)
[2021-11-13] MEDS: *HR* Dextrose 50 % in Water (Syg) 50 ML SYRINGE IVP PRN ×3 (02:40→02:41)
[2021-11-13] MEDS: WATER IVC SCH ×3 (02:42→06:56)
[2021-11-13] MEDS: NOREPINEPHRINE IVC SCH ×3 (02:42→06:56)
[2021-11-13] MEDS: D5 IVC SCH ×3 (02:42→06:56)
[2021-11-13 02:46] LABS: ABG Base Excess -21 mEq/L (-2 to 3); ABG HCO3 10 mEq/L (21-27); ABG Oxygen Saturation 93 % (95-98); ABG PCO2 45 mmHg (35-45); ABG PH 6.94 pH Units (7.32-7.45); ABG PO2 104 mmHg (85-104); ABG TCO2 11 mEq/L (20-26); Blood Gas Modality ASSIST CONTROL; Blood Gas VT 550 cc
[2021-11-13] MEDS ORDERED: Sodium Bicarbonate 150 MEQ in D5% in Water 1,000 ML IVC SCH (03:00)
[2021-11-13 03:03] LABS: VBG Ionized Calcium 0.94 mmol/L (1.15-1.35)
[2021-11-13 03:46] LABS: Mean Corpuscular Volume 105.3 fL (83.0-100.0); Mean Platelet Volume 12.3 fL (9.4-12.4)
[2021-11-13 03:48] LABS: Immature Platelets 22.9 % (1.1-6.1); Mean Corpuscular Hemoglobin 29.5 pg (28.0-33.3); Nucleated Red Blood Cells 53.2 /100 WBC (0); Red Cell Distribution Width 16.1 % (11.5-14.5); White Blood Count 7.5 K/mcL (4.3-11.1)
[2021-11-13 03:52] LABS: Platelet Count 95 K/mcL (140-400)
[2021-11-13 03:53] LABS: Hemoglobin 5.6 g/dL (12.9-16.9)
[2021-11-13 04:20] VITALS: TEMP 97.6; O2SAT 100
[2021-11-13] MEDS: Artificial Tears SOLN 15 ML BOTTLE BOTH EYES SCH (04:20)
[2021-11-13 04:32] LABS: Alkaline Phosphatase 228 Units/L (34-104); BUN/Creatinine Ratio 12 (6-26); Bilirubin,Total 1.2 mg/dL (0.3-1.0); Blood Urea Nitrogen 78 mg/dL (8-23); Calcium 11.3 mg/dL (8.6-10.3); Carbon Dioxide 18 mEq/L (23-29); Chloride 97 mEq/L (98-107); Glucose 204 mg/dL (70-105); Magnesium 3.5 mg/dL (1.6-2.6); Osmolality,Calculated 311 (280-300); Phosphorous 14.7 mg/dL (2.7-4.5); Potassium 8.9 mEq/L (3.5-5.1); Sodium 136 mEq/L (136-145); eGFR For African Americans 11 (> 60); eGFR For Non-African Americans 9 (> 60)
[2021-11-13 04:33] LABS: Albumin 2.2 g/dL (3.5-5.7); Albumin/Globulin Ratio 1.7 (1.1-2.2); Globulin 1.3 g/dL (2.4-3.5); Total Protein 3.5 g/dL (6.4-8.9); Troponin I 2.29 ng/mL (< 0.04)
[2021-11-13 04:56] LABS: ABG Base Excess -14 mEq/L (-2 to 3); ABG HCO3 15 mEq/L (21-27); ABG Oxygen Saturation 77 % (95-98); ABG PCO2 53 mmHg (35-45); ABG PH 7.05 pH Units (7.32-7.45); ABG PO2 60 mmHg (85-104); ABG TCO2 16 mEq/L (20-26); Blood Gas Modality ASSIST CONTROL; Blood Gas VT 550 cc
[2021-11-13] MEDS: Levalbuterol Neb 1.25 MG/3 ML IH SCH ×2 (04:59→07:36)
[2021-11-13 05:00] LABS: Activated Partial Thrombo Time 136.8 Seconds (26.0-36.0); INR 8.3
[2021-11-13 05:00] LABS: Lymphocytes # 0.9 K/mcL (0.6-4.6); Monocytes # 0.5 K/mcL (0.0-1.3); Neutrophils # 5.7 K/mcL (1.6-8.9); Platelet Estimate Decreased (Normal)
[2021-11-13 05:01] LABS: Prothrombin Time 90.6 Seconds (9.4-12.1)
[2021-11-13 05:03] VITALS: BP 124/97
[2021-11-13 06:29] LABS: Aspartate Amino Transferase > 3000 Units/L (13-39)
[2021-11-13 06:30] LABS: Alanine Aminotransferase > 5000 Units/L (7-52)
[2021-11-13 06:54] VITALS: PULSE 65
[2021-11-13] MEDS: Pantoprazole 40 MG VIAL IVP SCH (06:54)
[2021-11-13] MEDS: Budesonide/Formoterol 160/4.5 1 PUFF INH IH SCH (07:36)
[2021-11-14 21:08] LABS: Fluid Source for Cholesterol PLEURAL FLUID
[2021-11-15 08:03] LABS: Cholesterol,Body Fluid 92 mg/dL
== END 2021-11-13 09:37 | disposition expired | DRG 143 ==
LOC: EMEROOARM 20:06 → 3NENU 20:06 → SUATTDRO 10-12 01:00 → 3NENU 10-12 01:08 → 2NNU 10-16 19:57 → 2NENU 10-28 14:22 → 2NNU 11-05 11:00 → ICNU 11-06 09:21
PROVIDERS: ADMIT Internal Medicine; ATTEND Internal Medicine